=== PATIENT | female | born 1990 | race Caucasian/White ===

== ENCOUNTER → 2017-01-06 | Outpatient (CLI) | payer BC, OTHER ==
--- NOTE | 2017-01-06 21:53 | MR ---
EXAMINATION TYPE: MR brain wo con DATE OF EXAM: 01/06/2017 COMPARISON: NONE HISTORY: Seizures, migraines T1-weighted sagittal, T2, FLAIR, and diffusion axial, and T2 coronal coronal views of the brain are s ubmitted. There is no evidence of acute ischemia. The ventricles, basal cisterns, and sulci overlying the conv exities are consistent with the patient's age. There is no mass effect. Craniocervical junction maintained. Sella turcica has a normal appearance. No cerebellopontine angle mass. Changes of chronic sinusitis noted. Extensive changes involving the s phenoid sinus and ethmoid air cells. 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 White matter: Single 2 mm focus in the left frontal white matter. IMPRESSION: 1. No acute intracranial process. 2. Significant changes of sinusitis. 3. Nonspecific single 2 mm left frontal white matter lesion. Findings stable.
== END | disposition home or self-care (01) ==
LOC: RADMRIMAIN 20:41
PROVIDERS: ATTEND Psychiatry & Neurology Neurology
DX: R90.82 White matter disease, unspecified (principal); G40.909 Epilepsy, unspecified, not intractable, without status epilepticus; Z88.5 Allergy status to narcotic agent
CPT/HCPCS: 70551

== ENCOUNTER 2017-02-16 20:00 | Emergency (ER) | payer OTHER ==
[2017-02-16 20:30] VITALS: BP 104/56; PULSE 74; RESP 18; TEMP 97.8
--- NOTE | 2017-02-16 20:32 | ED ---
General Adult HPI - General Stated complaint: Back Pain Time Seen by Provider: 02/16/17 20:18 Source: patient, RN notes reviewed Mode of arrival: ambulatory Limitations: no limitations - History of Present Illness Initial comments: 26 yo female presents to the ER with cc of of low back pain. She states that she has noticed the past 3 days. She tries hot showers she took Tylenol. She has a history of degenerative disc disease. She states she just woke up with the pain. No burning or stinging with urination. No abdominal pain nausea vomiting. She states that she is breast-feeding so she cannot take any other medications that she was concerned due to the continued pain she thought that maybe we could find something to fix. She states that she was concerned that she thought that she should be seen. Patient denies any recent fever, chills, shortness of breath, chest pain, abdominal pain, nausea vomiting, numbness or tingling, dysuria or hematuria, constipation or diarrhea, headaches or visual changes, or any other current symptoms. - Related Data Home Medications Medication Instructions Recorded Confirmed Acyclovir 400 mg PO DAILY 05/07/14 05/04/16 Aspirin [Adult Low Dose Aspirin EC] 81 mg PO DAILY 05/04/16 05/04/16 Pnv,Calcium 72/Iron/Folic Acid 1 each PO DAILY 05/04/16 05/04/16 [ Plus Tablet] busPIRone HCl [Buspar] 5 mg PO BID 05/04/16 05/04/16 Previous Rx's Medication Instructions Recorded Orphenadrine [Norflex] 100 mg PO Q12H #10 tablet.er 02/16/17 Allergies Allergy/AdvReac Type Severity Reaction Status Date / Time codeine phosphate AdvReac Nausea & Verified 05/04/16 23:16 [From Tylenol-Codeine] Vomiting sulfamethoxazole AdvReac Anaphylaxis Verified 05/04/16 23:16 [From Bactrim] trimethoprim [From Bactrim] AdvReac Anaphylaxis Verified 05/04/16 23:16 Review of Systems ROS Statement: Those systems with pertinent positive or pertinent negative responses have been documented in the HPI. ROS Other: All systems not noted in ROS Statement are negative. Past Medical History Past Medical History: Seizure Disorder Additional Past Medical History / Comment(s): chronic back pain, migraines, NARCOLEPSY, genital herpes History of Any Multi-Drug Resistant Organisms: None Reported Past Surgical History: Appendectomy, Cholecystectomy Additional Past Surgical History / Comment(s): "nerves burned in my back" Past Psychological History: Anxiety, Depression Smoking Status: Current every day smoker General Exam Limitations: no limitations General appearance: alert, in no apparent distress Eye exam: Present: normal appearance, PERRL, EOMI. Absent: scleral icterus, conjunctival injection, periorbital swelling ENT exam: Present: normal exam, mucous membranes moist Neck exam: Present: normal inspection. Absent: tenderness, meningismus, lymphadenopathy Respiratory exam: Present: normal lung sounds bilaterally. Absent: respiratory distress, wheezes, rales, rhonchi, stridor Cardiovascular Exam: Present: regular rate, normal rhythm, normal heart sounds. Absent: systolic murmur, diastolic murmur, rubs, gallop, clicks Back exam: Present: normal inspection, full ROM, tenderness (Minimal to the left paraspinal region). Absent: vertebral tenderness Neurological exam: Present: alert, oriented X3 Psychiatric exam: Present: normal affect, normal mood Skin exam: Present: warm, dry, intact, normal color. Absent: rash Course Vital Signs 02/16/17 20:23 Temperature 97.8 F Pulse Rate 74 Respiratory 18 Rate Blood Pressure 104/56 O2 Sat by Pulse 97 Oximetry Medical Decision Making - Medical Decision Making 26 yo female presents with what appears to be left sided lumbar strain. This time we discussed her left pain control. We discussed fdc. We discussed return parameters all questions. We discussed safety medications and breast- feeding. Patient stated that she understood she is agreement this plan. She' ll be discharged. - Radiology Data Radiology results: report reviewed, image reviewed Disposition Clinical Impression: Lumbar strain Disposition: HOME SELF-CARE Condition: Stable Instructions: Low Back Strain (ED), Lower Back Exercises (ED) Additional Instructions: Please use medication as discussed. Please follow up with family doctor if symptoms have not improved over the next two days. Please return to the emergency room if your symptoms increase or worsen or for any other concerns. Prescriptions: Orphenadrine [Norflex] 100 mg PO Q12H #10 tablet.er Referrals: Nubia Molina MD [Primary Care Provider] - 1-2 days Time of Disposition: 20:56
--- NOTE | 2017-02-16 20:51 | XR ---
EXAMINATION TYPE: XR lumbar spine 2 or 3V DATE OF EXAM: 02/16/2017 CLINICAL HISTORY: Generalized low back pain today TECHNIQUE: Frontal and lateral images of the lumbar spine are obtained. COMPARISON: MRI lumbar spine October 18, 2014 FINDINGS: There are 5 lumbar type vertebral bodies identified. The lumbar spine shows satisfactory alignment without evidence of acute fracture or dislocation. Vertebral body heights and disk space he ights are within normal limits. Cholecystectomy clips are noted. IMPRESSION: Unremarkable study. No significant change from prior MRI.
== END 2017-02-16 21:05 | disposition home or self-care (01) ==
LOC: EC 20:00
DX: S39.012A Strain of muscle, fascia and tendon of lower back, initial encounter (principal); F17.200 Nicotine dependence, unspecified, uncomplicated; Z88.5 Allergy status to narcotic agent; Z88.6 Allergy status to analgesic agent; Z88.2 Allergy status to sulfonamides; Z79.82 Long term (current) use of aspirin; Z79.899 Other long term (current) drug therapy; X58.XXXA Exposure to other specified factors, initial encounter
CPT/HCPCS: 72100; 99283

== ENCOUNTER 2017-10-08 17:35 | Emergency (ER) | payer BC, OTHER ==
[2017-10-08] MEDS ORDERED: METOCLOPRAMIDE 5 MG/ML 2 ML VIAL IVP STA (18:36)
[2017-10-08] MEDS ORDERED: diphenhydrAMINE 50 MG/ML 1 ML VIAL IVP STA (18:36)
[2017-10-08] MEDS: SODIUM CHLORIDE 0.9% 1,000 ML IV STA ×2 (18:50→19:29)
[2017-10-08 19:03] LABS: Basophils % (A) 0 %; Eosinophils # (A) 0.2 k/uL (0-0.7); Eosinophils % (A) 2 %; HGB 12.3 gm/dL (11.4-16.0); Lymphocytes # (A) 1.9 k/uL (1.0-4.8); Lymphocytes % (A) 20 %; MCH 31.2 pg (25.0-35.0); MCHC 32.5 g/dL (31.0-37.0); MCV 96.1 fL (80.0-100.0); Mean Platelet Volume 6.3; Monocytes # (A) 0.5 k/uL (0-1.0); Monocytes % (A) 5 %; Neutrophils # (A) 7.1 k/uL (1.3-7.7); Neutrophils % (A) 72 %; Platelet Count 317 k/uL (150-450); RBC 3.95 m/uL (3.80-5.40); RDW 12.4 % (11.5-15.5); WBC 9.8 k/uL (3.8-10.6)
[2017-10-08 19:04] LABS: Appearance,Urine Clear (Clear); Bilirubin,Urine Negative (Negative); Blood,Urine Negative (Negative); Color,Urine Yellow; Glucose,Urine (UA) Negative (Negative); Ketones,Urine 2+ (Negative); Leukocyte Esterase,Urine Negative (Negative); Nitrite,Urine Negative (Negative); PH, Urine 5.5 (5.0-8.0); Protein,Urine Negative (Negative); Specific Gravity,Urine 1.013 (1.001-1.035); Urobilinogen,Urine <2.0 mg/dL (<2.0)
[2017-10-08 19:13] LABS: ALT 21 U/L (9-52); AST 12 U/L (14-36); Albumin 3.7 g/dL (3.5-5.0); Alkaline Phosphatase 50 U/L (38-126); Anion Gap 11 mmol/L; Blood Urea Nitrogen 5 mg/dL (7-17); Calcium 9.4 mg/dL (8.4-10.2); Carbon Dioxide 21 mmol/L (22-30); Chloride 104 mmol/L (98-107); Glucose 90 mg/dL (74-99); Lipase 77 U/L (23-300); Potassium 4.1 mmol/L (3.5-5.1); Sodium 136 mmol/L (137-145); Total Bilirubin 0.3 mg/dL (0.2-1.3); Total Protein 6.7 g/dL (6.3-8.2)
[2017-10-08] MEDS ORDERED: SODIUM CHLORIDE 0.9% 1,000 ML IV STA (19:16)
--- NOTE | 2017-10-08 19:41 | ED ---
General Adult HPI - General Chief complaint: Nausea/Vomiting/Diarrhea Stated complaint: poss dehydration, 14 weeks preg Time Seen by Provider: 10/08/17 18:24 Source: patient, RN notes reviewed Mode of arrival: ambulatory Limitations: no limitations - History of Present Illness Initial comments: Patient 27-year-old female who is G4, P2, approximately 14 weeks by ultrasound, presenting for nausea vomiting. Patient states that she's had nausea vomiting throughout the but increased last night. Does admit to a migraine headache. States similar to migraines that she's had in the past. Patient denies any signs of blood in the emesis. Denies any vaginal bleeding or discharge. Admits to some mild abdominal cramping. She states she has had ultrasound of this approximately one week ago. Patient denies any other complaints or symptoms. Patient denies any recent fever, chills , shortness of breath, chest pain, back pain, numbness or tingling, dysuria or hematuria, constipation or diarrhea, headaches or visual changes, or any other complaints. - Related Data Home Medications Medication Instructions Recorded Confirmed Acyclovir 400 mg PO DAILY 05/07/14 05/04/16 Aspirin [Adult Low Dose Aspirin EC] 81 mg PO DAILY 05/04/16 05/04/16 Pnv,Calcium 72/Iron/Folic Acid 1 each PO DAILY 05/04/16 05/04/16 [ Plus Tablet] busPIRone HCl [Buspar] 5 mg PO BID 05/04/16 05/04/16 Previous Rx's Medication Instructions Recorded Orphenadrine [Norflex] 100 mg PO Q12H #10 tablet.er 02/16/17 Allergies Allergy/AdvReac Type Severity Reaction Status Date / Time codeine phosphate AdvReac Nausea & Verified 10/08/17 17:49 [From Tylenol-Codeine] Vomiting sulfamethoxazole AdvReac Anaphylaxis Verified 10/08/17 17:49 [From Bactrim] trimethoprim [From Bactrim] AdvReac Anaphylaxis Verified 10/08/17 17:49 Review of Systems ROS Statement: Those systems with pertinent positive or pertinent negative responses have been documented in the HPI. ROS Other: All systems not noted in ROS Statement are negative. Past Medical History Past Medical History: Seizure Disorder Additional Past Medical History / Comment(s): NARCOLEPSY, genital herpes History of Any Multi-Drug Resistant Organisms: None Reported Past Surgical History: Appendectomy, Cholecystectomy Additional Past Surgical History / Comment(s): "nerves burned in my back" Past Psychological History: Anxiety, Depression Smoking Status: Current every day smoker Past Alcohol Use History: None Reported Past Drug Use History: None Reported General Exam - General Exam Comments Initial Comments: General: The patient is awake and alert, in no distress, and does not appear acutely ill. Eye: Pupils are equal, round and reactive to light, extra-ocular movements are intact. No nystagmus. There is normal conjunctiva bilaterally. No signs of icterus. Ears, nose, mouth and throat: There are moist mucous membranes and no oral lesions. Neck: The neck is supple, there is no tenderness or JVD. Cardiovascular: There is a regular rate and rhythm. No murmur, rub or gallop is appreciated. Respiratory: Lungs are clear to auscultation, respirations are non-labored, breath sounds are equal. No wheezes, stridor, rales, or rhonchi. Gastrointestinal: Soft, non-distended, non-tender abdomen without masses or organomegaly noted. There is no rebound or guarding present. No CVA tenderness. Musculoskeletal: Normal ROM, no tenderness. Strength 5/5. Sensation intact. Pulses equal bilaterally 2+. Neurological: A&O x 3. CN II-XII intact, There are no obvious motor or sensory deficits. Coordination appears grossly intact. Speech is normal. Skin: Skin is warm and dry and no rashes or lesions are noted. Psychiatric: Cooperative, appropriate mood & affect, normal judgment. Limitations: no limitations Course Vital Signs 10/08/17 17:46 Temperature 98.5 F Pulse Rate 79 Respiratory 18 Rate Blood Pressure 97/54 O2 Sat by Pulse 100 Oximetry Medical Decision Making - Medical Decision Making Patient reexamined at this time shows no signs of distress. Does admit to feeling much better. States headache is completely gone. Patient admits nausea much improved. Patient labs been reviewed. Given a total 2 L of foods. Patient will be discharged home to follow up with [facility]. Advised returning if any symptoms increase or worsen. - Lab Data Result diagrams: 10/08/17 18:19 10/08/17 18:19 Lab Results 10/08/17 10/08/17 10/08/17 Range/Units 18:19 18:19 18:19 WBC 9.8 (3.8-10.6) k/uL RBC 3.95 (3.80-5.40) m/uL Hgb 12.3 (11.4-16.0) gm/dL Hct 38.0 (34.0-46.0) % MCV 96.1 (80.0-100.0) fL MCH 31.2 (25.0-35.0) pg MCHC 32.5 (31.0-37.0) g/dL RDW 12.4 (11.5-15.5) % Plt Count 317 (150-450) k/uL Neutrophils % 72 % Lymphocytes % 20 % Monocytes % 5 % Eosinophils % 2 % Basophils % 0 % Neutrophils # 7.1 (1.3-7.7) k/uL Lymphocytes # 1.9 (1.0-4.8) k/uL Monocytes # 0.5 (0-1.0) k/uL Eosinophils # 0.2 (0-0.7) k/uL Basophils # 0.0 (0-0.2) k/uL Sodium 136 L (137-145) mmol/L Potassium 4.1 (3.5-5.1) mmol/L Chloride 104 (98-107) mmol/L Carbon Dioxide 21 L (22-30) mmol/L Anion Gap 11 mmol/L BUN 5 L (7-17) mg/dL Creatinine 0.45 L (0.52-1.04) mg/dL Est GFR (CKD-EPI)AfAm >90 (>60 ml/min/1.73 sqM) Est GFR (CKD-EPI)NonAf >90 (>60 ml/min/1.73 sqM) Glucose 90 (74-99) mg/dL Calcium 9.4 (8.4-10.2) mg/dL Total Bilirubin 0.3 (0.2-1.3) mg/dL AST 12 L (14-36) U/L ALT 21 (9-52) U/L Alkaline Phosphatase 50 (38-126) U/L Total Protein 6.7 (6.3-8.2) g/dL Albumin 3.7 (3.5-5.0) g/dL Lipase 77 (23-300) U/L Urine Color Yellow Urine Appearance Clear (Clear) Urine pH 5.5 (5.0-8.0) Ur Specific [place] 1.013 (1.001-1.035) Urine Protein Negative (Negative) Urine Glucose (UA) Negative (Negative) Urine Ketones 2+ H (Negative) Urine Blood Negative (Negative) Urine Nitrite Negative (Negative) Urine Bilirubin Negative (Negative) Urine Urobilinogen <2.0 (<2.0) mg/dL Ur Leukocyte Esterase Negative (Negative) Disposition Clinical Impression: Hyperemesis gravidarum Disposition: HOME SELF-CARE Condition: Good Instructions: Acute Nausea and Vomiting (ED) Additional Instructions: Please follow-up with [facility] next 1-2 days. Please return to emergency room if the symptoms increase or worsen or for any other concerns. Is patient prescribed a controlled substance at d/c from ED?: No Referrals: Antonina Chou MD [Primary Care Provider] - 1-2 days Time of Disposition: 19:30
[2017-10-08 19:55] LABS: HCG,Quantitative Serum 19308.1 mIU/mL
[2017-10-08 20:43] VITALS: BP 102/89; PULSE 64; RESP 17; TEMP 98.8
== END 2017-10-08 20:43 | disposition home or self-care (01) ==
LOC: EC 17:35
DX: O21.0 Mild hyperemesis gravidarum (principal); O99.89 Other specified diseases and conditions complicating pregnancy, childbirth and the puerperium; R51 Headache; R10.9 Unspecified abdominal pain; O99.342 Other mental disorders complicating pregnancy, second trimester; F32.9 Major depressive disorder, single episode, unspecified; F41.9 Anxiety disorder, unspecified; O99.332 Smoking (tobacco) complicating pregnancy, second trimester; F17.200 Nicotine dependence, unspecified, uncomplicated; Z79.82 Long term (current) use of aspirin; Z79.899 Other long term (current) drug therapy; Z88.2 Allergy status to sulfonamides; Z88.5 Allergy status to narcotic agent; Z87.42 Personal history of other diseases of the female genital tract; Z90.49 Acquired absence of other specified parts of digestive tract; Z3A.14 14 weeks gestation of pregnancy
CPT/HCPCS: 36415; 80053; 83690; 85025; 81003; 84702; 87086; 99284; 96374; 96375; 96361 ×2; J1200; J2765

== ENCOUNTER 2017-12-08 11:33 | Outpatient (CLI) | payer BC, OTHER ==
[2017-12-08 12:05] LABS: Appearance,Urine Clear (Clear); Bilirubin,Urine Negative (Negative); Blood,Urine Negative (Negative); Color,Urine Yellow; Glucose,Urine (UA) Negative (Negative); Ketones,Urine Trace (Negative); Leukocyte Esterase,Urine Negative (Negative); Nitrite,Urine Negative (Negative); PH, Urine 5.5 (5.0-8.0); Protein,Urine Trace (Negative); Specific Gravity,Urine 1.022 (1.001-1.035); Urobilinogen,Urine <2.0 mg/dL (<2.0)
[2017-12-08 12:34] VITALS: BP 120/59; PULSE 102; RESP 18; TEMP 98
--- NOTE | 2017-12-15 08:58 | P.MSEPDOC ---
Presenting Problems - Arrival Data Date of Arrival on Unit: 12/08/17 Time of Arrival on Unit: 11:40 Mode of Transport: Ambulatory - Complaint OB-Reason for Admission/Chief Complaint: Pain Comment: back pain, abdominal pain, hip pain Medical History - Information : 3 Para: 2 Term: 2 : 0 Abortions: Spontaneous or Elective: 0 Number of Living Children: 2 - Gestational Age Gestational Age by ROBYN (wks/days): 23 Weeks and 1 Days - History Comment: history of contractions with previous pregnany, hx gastroskesis with previous delivery. being follow by high risk Review of Systems - Review of Systems Constitutional: No problems Breast: No problems ENT: No problems Cardiovascular: No problems Respiratory: No problems Gastrointestinal: No problems Genitourinary: No problems Musculoskeletal: No problems Neurological: No problems Skin: No problems Vital Signs - Temperature Temperature: 98.0 F Temperature Source: Oral - Pulse Right Sitting Brachial Pulse Rate: 102 Pulse Assessment Method: Automatic Cuff - Respirations Respiratory Rate: 18 Oxygen Delivery Method: Room Air O2 Sat by Pulse Oximetry: 98 - Blood Pressure Right Arm Sitting Blood Pressure: 120/59 Blood Pressure Mean: 79 Blood Pressure Source: Automatic Cuff Medical Screen Scoring (Pre) - Cervical Exam Dilation: 0 cm = 0 - Uterine Contractions Frequency: N/A Duration: N/A Intensity: N/A - Maternal Vital Signs Maternal Temperature: N/A Maternal Blood Pressure: N/A Signs of Preeclampsia: N/A Maternal Respirations: N/A - Pain Assessment Pain Location and Character: Back, Abdomen, Hip Pain Scale Used: Numeric (1 - 10) Pain Intensity: 2 Pain Management Goal: 0 Pain Description: Aching Pain Radiation Location: none Pain Frequency: Occasional Pain Duration: 2 Pain Duration Units: Days Pain Behavior: None Exhibited Pain Aggravating Factors: Activity Pharmacological Interventions: PRN Medication - Maternal Trauma Maternal Trauma: N/A - Assessment Baseline FHR: 145 - Total Score Total Score (Pre): 0 - Level of Risk Level of Risk: Low (0-5) Physician Notification (Pre) - Physician Notified Physician Notified Date: 12/08/17 Physician Notified Time: 12:25 Physician/Practitioner Notifed:: Dr John Spoke With: dr John - Notification Comment Comment: ok to dc home if cervix is closed. Only send ffn if cervix is dilated Disposition - Disposition OB Disposition: Discharge to home Discharge Date: 12/08/17 Discharge Time: 12:34 I agree with the RN Medical Screening Exam: Yes Risk & Benefit of care provided described in d/c instruction: Yes Diagnosis: FALSE LABOR BEFORE 37 COMPLETED WEEKS OF GEST, SECOND TRI
== END 2017-12-08 12:42 | disposition home or self-care (01) ==
LOC: FBPOP 11:33
PROVIDERS: ATTEND Obstetrics & Gynecology
DX: O47.02 False labor before 37 completed weeks of gestation, second trimester (principal); Z3A.23 23 weeks gestation of pregnancy
CPT/HCPCS: 81003; 84112; 99213

== ENCOUNTER 2018-01-24 21:09 | Outpatient (CLI) | payer BC, OTHER ==
[2018-01-24 22:10] VITALS: BP 119/58; PULSE 85; RESP 16; TEMP 96.4
--- NOTE | 2018-01-25 09:13 | P.MSEPDOC ---
Presenting Problems - Arrival Data Date of Arrival on Unit: 01/24/18 Time of Arrival on Unit: 21:09 Mode of Transport: Ambulatory - Complaint OB-Reason for Admission/Chief Complaint: Decreased Movement Comment: pt states she hasn't felt baby move since 1800 this evening. Medical History - Information : 4 Para: 2 Term: 2 : 0 Abortions: Spontaneous or Elective: 1 Number of Living Children: 2 - Gestational Age Gestational Age by ROBYN (wks/days): 29 Weeks and 6 Days - History Complications: GDM Sexually Transmitted Diseases: HSV Review of Systems - Review of Systems Constitutional: No problems Breast: No problems ENT: No problems Cardiovascular: No problems Respiratory: No problems Gastrointestinal: No problems Genitourinary: No problems Musculoskeletal: No problems Neurological: No problems Skin: No problems Vital Signs - Temperature Temperature: 96.4 F Temperature Source: Temporal Artery Scan - Pulse Right Sitting Brachial Pulse Rate: 85 Pulse Assessment Method: Automatic Cuff - Respirations Respiratory Rate: 16 Oxygen Delivery Method: Room Air - Blood Pressure Right Arm Sitting Blood Pressure: 119/58 Blood Pressure Mean: 78 Blood Pressure Source: Automatic Cuff Medical Screen Scoring (Pre) - Cervical Exam Dilation: Exam Deferred Effacement: Exam Deferred Membranes: Intact - Uterine Contractions Frequency: N/A Duration: N/A Intensity: N/A - Maternal Vital Signs Maternal Temperature: N/A Maternal Blood Pressure: N/A Signs of Preeclampsia: N/A Maternal Respirations: N/A - Pain Assessment Pain Scale Used: Numeric (1 - 10) Pain Intensity: 0 - Maternal Trauma Maternal Trauma: N/A - Assessment Baseline FHR: 145 Heart Rate - NICHD Category: Category I (Normal) = 0 NST: Reactive Position: N/A Station: N/A - Total Score Total Score (Pre): 0 - Level of Risk Level of Risk: Low (0-5) Physician Notification (Pre) - Physician Notified Physician Notified Date: 01/24/18 Physician Notified Time: 21:49 Physician/Practitioner Notifed:: felicia Spoke With: felicia New Order Received: Yes - Notification Comment Comment: d/c home Disposition - Disposition OB Disposition: Discharge to home Discharge Date: 01/24/18 Discharge Time: 21:59 I agree with the RN Medical Screening Exam: Yes Risk & Benefit of care provided described in d/c instruction: Yes Diagnosis: DECREASED MOVEMENTS, THIRD TRIMESTER, UNSP
== END 2018-01-24 21:59 | disposition home or self-care (01) ==
LOC: FBPOP 21:09
PROVIDERS: ATTEND Obstetrics & Gynecology
DX: O36.8130 Decreased fetal movements, third trimester, not applicable or unspecified (principal); Z3A.29 29 weeks gestation of pregnancy
CPT/HCPCS: 59025; 99213

== ENCOUNTER 2018-03-12 11:21 | Outpatient (CLI) | payer BC, OTHER ==
[2018-03-12 11:55] VITALS: BP 123/65; PULSE 100; RESP 18; TEMP 97.2
--- NOTE | 2018-03-12 13:18 | P.MSEPDOC ---
Presenting Problems - Arrival Data Date of Arrival on Unit: 03/12/18 Time of Arrival on Unit: 11:12 Mode of Transport: Ambulatory - Complaint OB-Reason for Admission/Chief Complaint: Rule Out PROM Medical History - Information : 4 Para: 2 Term: 2 : 0 Number of Living Children: 2 - Gestational Age Gestational Age by ROBYN (wks/days): 36 Weeks and 4 Days - History Complications: GDM, Smoker Review of Systems - Review of Systems Constitutional: No problems Breast: No problems ENT: No problems Cardiovascular: No problems Respiratory: No problems Gastrointestinal: No problems Genitourinary: No problems Musculoskeletal: No problems Neurological: No problems Skin: No problems Vital Signs - Temperature Temperature: 97.2 F Temperature Source: Temporal Artery Scan - Pulse Right Sitting Brachial Pulse Rate: 100 Pulse Assessment Method: Automatic Cuff - Respirations Respiratory Rate: 18 Oxygen Delivery Method: Room Air O2 Sat by Pulse Oximetry: 98 - Blood Pressure Right Arm Sitting Blood Pressure: 123/65 Blood Pressure Mean: 84 Blood Pressure Source: Automatic Cuff Medical Screen Scoring (Pre) - Cervical Exam Dilation: Exam Deferred - Uterine Contractions Frequency: N/A Duration: N/A Intensity: N/A - Maternal Vital Signs Maternal Temperature: N/A Maternal Blood Pressure: N/A Signs of Preeclampsia: N/A Maternal Respirations: N/A - Pain Assessment Pain Scale Used: Numeric (1 - 10) Pain Intensity: 0 - Maternal Trauma Maternal Trauma: N/A - Assessment Baseline FHR: 125 Heart Rate - NICHD Category: Category II (Indeterminate) = 3 NST: Reactive Position: N/A Station: N/A - Total Score Total Score (Pre): 3 - Level of Risk Level of Risk: Low (0-5) Medical Screen Scoring (Post) - Cervical Exam Dilation: 1-3 cm = 1 Membranes: Intact - Total Score Total Score (Post): 1 - Post Treatment Level of Risk Post Treatment Level of Risk: Low (0-5) Physician Notification (Post) - Physician Notified Physician Notified Date: 03/12/18 Physician Notified Time: 12:02 Physician/Practitioner Notified:: Shaniqua Spoke With: Shaniqua New Order Received: Yes (discharge to home) Disposition - Disposition OB Disposition: Discharge to home, Written follow up instructions reviewed Discharge Date: 03/12/18 Discharge Time: 12:10 I agree with the RN Medical Screening Exam: Yes Risk & Benefit of care provided described in d/c instruction: Yes Diagnosis: FALSE LABOR BEFORE 37 COMPLETED WEEKS OF GEST, THIRD TRI
== END 2018-03-12 12:10 ==
LOC: FBPOP 11:21
PROVIDERS: ATTEND Obstetrics & Gynecology
DX: O47.03 False labor before 37 completed weeks of gestation, third trimester (principal); O99.333 Smoking (tobacco) complicating pregnancy, third trimester; Z3A.36 36 weeks gestation of pregnancy
CPT/HCPCS: 59025; 84112; 99213

== ENCOUNTER 2018-03-30 06:00 | Inpatient (IN) | payer BC, OTHER ==
[2018-03-30] MEDS ORDERED: OXYTOCIN 10 UNIT/ML 1 ML VIAL IM PRN (06:35)
[2018-03-30] MEDS ORDERED: CARBOPROST TROMETHAMINE 250 MCG/ML 1 ML AMP IM PRN (06:35)
[2018-03-30] MEDS ORDERED: METHYLERGONOVINE 0.2 MG/ML 1 ML AMP IM PRN (06:35)
[2018-03-30] MEDS ORDERED: LIDOCAINE 0.5% (PF) 5 MG/ML (50 ML SDV) SQ PRN (06:35)
[2018-03-30] MEDS ORDERED: TERBUTALINE 1 MG/ML VIAL SQ PRN (06:35)
[2018-03-30 06:45] VITALS: BMI 36.2
[2018-03-30] MEDS ORDERED: OXYTOCIN 30 UNITS/500 ML NS 30 UNIT in SALINE 1 500ML.BAG IV SCH (06:45)
[2018-03-30 06:54] LABS: Basophils % (A) 0 %; Eosinophils # (A) 0.2 k/uL (0-0.7); Eosinophils % (A) 2 %; HCT 38.1 % (34.0-46.0); Lymphocytes # (A) 1.8 k/uL (1.0-4.8); Lymphocytes % (A) 18 %; MCH 32.8 pg (25.0-35.0); MCHC 34.1 g/dL (31.0-37.0); MCV 96.4 fL (80.0-100.0); Mean Platelet Volume 6.3; Monocytes # (A) 0.5 k/uL (0-1.0); Monocytes % (A) 5 %; Neutrophils # (A) 7.3 k/uL (1.3-7.7); Neutrophils % (A) 72 %; Platelet Count 279 k/uL (150-450); RBC 3.95 m/uL (3.80-5.40); RDW 13.1 % (11.5-15.5); WBC 10.1 k/uL (3.8-10.6)
[2018-03-30] MEDS: LACTATED RINGERS 1,000 ML IV SCH ×2 (06:56→11:07)
[2018-03-30] MEDS ORDERED: BUTORPHANOL 1 MG/ML 1 ML VIAL IV PRN (09:01)
[2018-03-30] MEDS ORDERED: ZOLPIDEM 5 MG TAB PO PRN (11:49)
[2018-03-30] MEDS ORDERED: LANOLIN CREAM 5 GM TUBE TOPICAL PRN (11:49)
[2018-03-30] MEDS ORDERED: BENZOCAINE/MENTHOL SPRAY 1 GM/SPRAY AEROSOL TOPICAL PRN (11:49)
[2018-03-30] MEDS ORDERED: WITCH HAZEL 1 EACH MED..PAD TOPICAL PRN (11:49)
[2018-03-30] MEDS ORDERED: ACETAMINOPHEN TAB 325 MG TAB PO PRN (11:49)
[2018-03-30] MEDS ORDERED: diphenhydrAMINE 50 MG CAP PO PRN (11:49)
[2018-03-30] MEDS ORDERED: SIMETHICONE 80 MG CHEWABLE PO PRN (11:49)
[2018-03-30] MEDS ORDERED: HYDROCORTISONE 2.5% RECTAL CREAM 30 GM TUBE RECTAL PRN (11:49)
[2018-03-30] MEDS ORDERED: diphenhydrAMINE 25 MG CAP PO PRN (11:49)
[2018-03-30] MEDS: IBUPROFEN 600 MG TAB PO PRN ×2 (11:59→23:07)
[2018-03-30] MEDS ORDERED: OXYTOCIN 20 UNITS/1000 ML NS 1,000 ML IV SCH (12:00)
--- NOTE | 2018-03-30 12:00 | P.HPOB ---
History of Present Illness H&P Date: 03/30/18 Chief Complaint: Intrauterine at term: Induction of labor Patient is a 27-year-old at 39 weeks gestation arise for induction of labor. Her Precis course has been compensated by gestational diabetes for which she was diet controlled. Her sugars improved rapidly with diet control and she has done very well. Hemoglobin A1c last check was 4.8. She did have nonstress test and monitoring through the latter part of the as well. Pertinent labs O+ blood type, Rh antibody was negative. Rubella immune, hepatitis B surface antigen as well as RPR and GBS were all negative. All questions are answered for her prior to proceeding with induction. On physical exam vital signs are stable and afebrile. Heart regular, lungs clear, extremities are without pain. Pelvic exam reveals review to [facility] dilated artificial rupture membranes was performed and clear fluid is noted. Cautery when tracing is noted. Past Medical History Past Medical History: Asthma, Seizure Disorder Additional Past Medical History / Comment(s): NARCOLEPSY, genital herpes History of Any Multi-Drug Resistant Organisms: None Reported Past Surgical History: Appendectomy, Cholecystectomy Additional Past Surgical History / Comment(s): "nerves burned in my back" Past Anesthesia/Blood Transfusion Reactions: No Reported Reaction Past Psychological History: Anxiety, Depression Smoking Status: Current every day smoker Past Alcohol Use History: None Reported Past Drug Use History: None Reported - Past Family History Mother Family Medical History: No Reported History Medications and Allergies Home Medications Medication Instructions Recorded Confirmed Type Acyclovir 400 mg PO BID 05/07/14 03/30/18 History Pnv,Calcium 72/Iron/Folic Acid 1 each PO DAILY 05/04/16 03/30/18 History [ Plus Tablet] Allergies Allergy/AdvReac Type Severity Reaction Status Date / Time codeine phosphate AdvReac Nausea & Verified 03/30/18 06:33 [From Tylenol-Codeine] Vomiting sulfamethoxazole AdvReac Rash/Hives Verified 03/30/18 06:33 [From Bactrim] trimethoprim [From Bactrim] AdvReac Rash/Hives Verified 03/30/18 06:33 Exam Osteopathic Statement: *. No significant issues noted on an osteopathic structural exam other than those noted in the History and Physical/Consult. Vital Signs Temp Pulse Resp BP 03/30/18 06:40 97.4 F L 96 15 112/58 Intake and Output 03/29/18 03/30/18 03/30/18 22:59 06:59 14:59 Other: Weight 98.883 kg - OBG Physical Exam Breast: both: normal (no masses) Abdomen: bowel sounds normal, no diffuse tenderness, no bruit present, no guarding noted, no hepatomegaly, no splenomegaly, no mass Vulva: both: normal Vagina: normal moisture, no discharge Cervix: no lesion, no discharge Uterus: normal size, normal contour Adnexa: both: normal Anus/Rectum: normal perianal skin, no rectal mass, no hemorrhoids, heme negative Results Result Diagrams: 03/30/18 06:37
--- NOTE | 2018-03-30 12:02 | P.PROBDLV ---
Vaginal Delivery Note - . Vaginal Delivery Note: Patient progressed complete and pushing with spontaneous vaginal delivery of a viable male over an intact perineum. Falling deliver the head anterior posterior shoulders were easily delivered with gentle downward upper traction followed by the remainder the baby. Baby was delivered from left occiput anterior position. Once baby was fully delivered mouth nares were bulb suctioned and was placed on mother's abdomen where the umbilical cord was allowed to pulsate for 30 seconds prior to clamping and cutting. Nursery personnel was present and assumed care. Placenta was then delivered intact and Pitocin was added to the IV. scores and weight are both pending, but both mother and baby appear stable.
[2018-03-30] MEDS: SENNOSIDES-DOCUSATE SODIUM 1 EACH TAB PO SCH (20:30)
[2018-03-30 21:32] LABS: Hemoglobin A1C 4.8 % (4.0-6.0)
[2018-03-31 07:03] LABS: Basophils % (A) 0 %; Eosinophils # (A) 0.2 k/uL (0-0.7); Eosinophils % (A) 2 %; HCT 34.9 % (34.0-46.0); HGB 11.5 gm/dL (11.4-16.0); Lymphocytes # (A) 1.7 k/uL (1.0-4.8); Lymphocytes % (A) 18 %; MCH 32.3 pg (25.0-35.0); MCV 98.1 fL (80.0-100.0); Monocytes # (A) 0.7 k/uL (0-1.0); Monocytes % (A) 7 %; Neutrophils # (A) 6.9 k/uL (1.3-7.7); Neutrophils % (A) 70 %; Platelet Count 272 k/uL (150-450); RBC 3.55 m/uL (3.80-5.40); WBC 9.8 k/uL (3.8-10.6)
--- NOTE | 2018-03-31 07:43 | P.DS ---
Providers Date of admission: 03/30/18 06:22 Expected date of discharge: 03/31/18 Attending physician: Jeremias John Primary care physician: Stated None Hospital Course: Araceli is doing very well day 1. She is involuting, voiding, and she is tolerating her diet. She voices no complaints. Vital signs are stable and afebrile. Heart regular, lungs clear, extremities without pain. Abdomen soft nontender. Uterus is firm and lochia is reported be light. Assessment day 1. Plan discharged home follow up with me in 6 weeks. Discharge instructions were thoroughly reviewed all questions were answered and a prescription for Motrin was reported to her pharmacy. Patient Condition at Discharge: Good Plan - Discharge Summary New Discharge Prescriptions: New Ibuprofen [Motrin] 600 mg PO Q6HR PRN #30 tab PRN Reason: Pain No Action Acyclovir 400 mg PO BID Pnv,Calcium 72/Iron/Folic Acid [ Plus Tablet] 1 each PO DAILY Discharge Medication List Acyclovir 400 mg PO BID 05/07/14 [History] Pnv,Calcium 72/Iron/Folic Acid [ Plus Tablet] 1 each PO DAILY 05/04/16 [ History] Ibuprofen [Motrin] 600 mg PO Q6HR PRN #30 tab 03/31/18 [Rx] Follow up Appointment(s)/Referral(s): Jeremias John DO [Doctor of Osteopathic Medicine] - 1 Week Activity/Diet/Wound Care/Special Instructions: No heavy lifting, limit stairs and driving, and pelvic rest. If any high temperatures, heavy bleeding, or severe pain call my office Discharge Disposition: HOME SELF-CARE
[2018-03-31] MEDS: SENNOSIDES-DOCUSATE SODIUM 1 EACH TAB PO SCH (08:46)
[2018-03-31] MEDS: IBUPROFEN 600 MG TAB PO PRN (09:36)
[2018-03-31 12:33] VITALS: BP 124/67; PULSE 60; RESP 17; TEMP 97.7
== END 2018-03-31 12:30 | disposition home or self-care (01) | DRG 806 ==
LOC: 4FBP 06:22
PROVIDERS: ADMIT Obstetrics & Gynecology; ATTEND Obstetrics & Gynecology
PROC: 10907ZC Drainage of Amniotic Fluid, Therapeutic from Products of Conception, Via Natural or Artificial Opening (ICD-10-PCS; principal; 2018-03-30)
PROC: 3E033VJ Introduction of Other Hormone into Peripheral Vein, Percutaneous Approach (ICD-10-PCS; principal; 2018-03-30)
PROC: 10E0XZZ Delivery of Products of Conception, External Approach (ICD-10-PCS; principal; 2018-03-30)
DX: O24.420 Gestational diabetes mellitus in childbirth, diet controlled (principal); O98.32 Other infections with a predominantly sexual mode of transmission complicating childbirth; Z37.0 Single live birth; O99.334 Smoking (tobacco) complicating childbirth; F17.200 Nicotine dependence, unspecified, uncomplicated; A60.09 Herpesviral infection of other urogenital tract; Z3A.39 39 weeks gestation of pregnancy; Z79.899 Other long term (current) drug therapy; Z88.5 Allergy status to narcotic agent; Z88.2 Allergy status to sulfonamides
CPT/HCPCS: 83036; 85025; 86850; 86900; 86901

== ENCOUNTER → 2018-05-29 | Outpatient (CLI) | payer BC, OTHER ==
[2018-05-29 11:30] LABS: Glucose 2 Hour 81 mg/dL
== END ==
LOC: LABWHC1 08:25
PROVIDERS: ATTEND Obstetrics & Gynecology
DX: O24.439 Gestational diabetes mellitus in the puerperium, unspecified control (principal); Z3A.00 Weeks of gestation of pregnancy not specified
CPT/HCPCS: 36415; 82947; 82950

== ENCOUNTER → 2018-06-04 | Outpatient (CLI) | payer BC, OTHER | END | disposition home or self-care (01) | LOC: LABWHC1 11:30 | PROVIDERS: ATTEND Obstetrics & Gynecology | DX: N91.2 Amenorrhea, unspecified (principal) | CPT/HCPCS: 36415; 84702 ==

== ENCOUNTER 2018-10-20 17:52 | Emergency (ER) | payer BC, OTHER ==
[2018-10-20 18:00] VITALS: BP 115/66; PULSE 70; RESP 18; TEMP 98.5
[2018-10-20] MEDS ORDERED: SODIUM CHLORIDE 0.9% 1,000 ML IV STA (18:26)
--- NOTE | 2018-10-20 18:35 | ED ---
Abdominal Pain HPI - General Chief Complaint: Abdominal Pain Stated Complaint: Cramps, vomiting, fatigue Time Seen by Provider: 10/20/18 18:02 Source: patient Mode of arrival: ambulatory Limitations: no limitations - History of Present Illness Initial Comments: Patient is a 28-year-old female presenting to the emergency Department with complaints of abdominal cramping has been going on for the past 2-3 weeks. Patient is currently 8 weeks . Patient is . Patient states she is currently switching OB GYNs to Marjorie Camp, but has yet to see her. Patient states she has been having an increase in nausea and fatigue. Patient denies any vaginal bleeding at this time. Patient states she feels like the abdominal pain has been increasing. Patient stopped breast-feeding her 6-month-old approximately one month ago. Patient is still taking a vitamin. Patient denies fever, chills, vomiting, diarrhea. Patient has no other com plaints at this time. Upon arrival to ER, vital signs stable. - Related Data Home Medications Medication Instructions Recorded Confirmed Pnv,Calcium 72/Iron/Folic Acid 1 tab PO HS 05/04/16 10/20/18 [ Plus Tablet] Allergies Allergy/AdvReac Type Severity Reaction Status Date / Time sulfamethoxazole Allergy Rash/Hives Verified 10/20/18 18:08 [From Bactrim] trimethoprim [From Bactrim] Allergy Rash/Hives Verified 10/20/18 18:08 codeine phosphate AdvReac Nausea & Verified 10/20/18 18:08 [From Tylenol-Codeine] Vomiting Review of Systems ROS Statement: Those systems with pertinent positive or pertinent negative responses have been documented in the HPI. ROS Other: All systems not noted in ROS Statement are negative. Past Medical History Past Medical History: Asthma, Seizure Disorder Additional Past Medical History / Comment(s): NARCOLEPSY, genital herpes History of Any Multi-Drug Resistant Organisms: None Reported Past Surgical History: Appendectomy, Cholecystectomy Additional Past Surgical History / Comment(s): "nerves burned in my back" Past Anesthesia/Blood Transfusion Reactions: No Reported Reaction Past Psychological History: Anxiety, Depression Smoking Status: Current every day smoker Past Alcohol Use History: None Reported Past Drug Use History: None Reported - Past Family History Mother Family Medical History: No Reported History General Exam - General Exam Comments Initial Comments: GENERAL: Well-appearing, well-nourished and in no acute distress. HEAD: Atraumatic, normocephalic. EYES: Pupils equal round and reactive to light, extraocular movements intact, sclera anicteric, conjunctiva are normal. ENT: TMs normal, nares patent, oropharynx clear without exudates. Moist mucous membranes. NECK: Normal range of motion, supple without lymphadenopathy or JVD. LUNGS: Breath sounds clear to auscultation bilaterally and equal. No wheezes rales or rhonchi. HEART: Regular rate and rhythm without murmurs, rubs or gallops. ABDOMEN: Lower abdominal/suprapubic tenderness to palpation. Soft, normoactive bowel sounds. No guarding, no rebound. No masses appreciated. : Deferred EXTREMITIES: Normal range of motion, no pitting or edema. No clubbing or cyanosis. NEUROLOGICAL: Cranial nerves II through XII grossly intact. Normal speech, normal gait. PSYCH: Normal mood, normal affect. SKIN: Warm, Dry, normal turgor, no rashes or lesions noted. Limitations: no limitations Course Vital Signs 10/20/18 17:58 Temperature 98.5 F Pulse Rate 70 Respiratory 18 Rate Blood Pressure 115/66 O2 Sat by Pulse 99 Oximetry Medical Decision Making - Medical Decision Making Patient is a 28-year-old female presenting with lower abdominal pain for a few weeks. Patient is currently 8 weeks . Patient is . Her last child is 6 months of age. On exam patient has suprapubic tenderness. Rest of exam is within normal limits. Vital signs are stable. CBC, CMP are within normal limits. HCG Rom is 211,000. UA shows no signs of infection. Patient's blood type is O+. Ultrasound reveals a single viable IUP corresponding with 8 weeks and 2 days. Heart rate is 159. There was a tiny subchorionic hemorrhage measuring approximately 3.1mL. findings were discussed with the patient. Jayant king is stable for discharge at this time and she is in agreement with this plan of care. Patient will continue with vitamins. Patient will see [employer] next week as discussed. Return parameters were discussed with the patient she verbalized understanding. Case discussed with Dr. Damian. - Lab Data Result diagrams: 10/20/18 18:37 10/20/18 18:37 Lab Results 10/20/18 10/20/18 10/20/18 Range/Units 18:37 18:37 18:37 WBC 9.9 (3.8-10.6) k/uL RBC 4.06 (3.80-5.40) m/uL Hgb 12.9 (11.4-16.0) gm/dL Hct 37.7 (34.0-46.0) % MCV 92.6 (80.0-100.0) fL MCH 31.8 (25.0-35.0) pg MCHC 34.3 (31.0-37.0) g/dL RDW 14.1 (11.5-15.5) % Plt Count 328 (150-450) k/uL Neutrophils % 69 % Lymphocytes % 21 % Monocytes % 5 % Eosinophils % 2 % Basophils % 1 % Neutrophils # 6.8 (1.3-7.7) k/uL Lymphocytes # 2.1 (1.0-4.8) k/uL Monocytes # 0.5 (0-1.0) k/uL Eosinophils # 0.2 (0-0.7) k/uL Basophils # 0.1 (0-0.2) k/uL Sodium 138 (137-145) mmol/L Potassium 4.0 (3.5-5.1) mmol/L Chloride 106 (98-107) mmol/L Carbon Dioxide 24 (22-30) mmol/L Anion Gap 8 mmol/L BUN 10 (7-17) mg/dL Creatinine 0.44 L (0.52-1.04) mg/dL Est GFR (CKD-EPI)AfAm >90 (>60 ml/min/1.73 sqM) Est GFR (CKD-EPI)NonAf >90 (>60 ml/min/1.73 sqM) Glucose 94 (74-99) mg/dL Calcium 9.3 (8.4-10.2) mg/dL Total Bilirubin 0.2 (0.2-1.3) mg/dL AST 13 L (14-36) U/L ALT 11 (9-52) U/L Alkaline Phosphatase 61 (38-126) U/L Total Protein 7.0 (6.3-8.2) g/dL Albumin 4.1 (3.5-5.0) g/dL HCG, Quant 824843.0 mIU/mL Urine Color Urine Appearance (Clear) Urine pH (5.0-8.0) Ur Specific Rice (1.001-1.035) Urine Protein (Negative) Urine Glucose (UA) (Negative) Urine Ketones (Negative) Urine Blood (Negative) Urine Nitrite (Negative) Urine Bilirubin (Negative) Urine Urobilinogen (<2.0) mg/dL Ur Leukocyte Esterase (Negative) Blood Type O Positive Blood Type Recheck O Pos Bld Type Recheck Status [facility] ONLY 10/20/18 Range/Units 18:47 WBC (3.8-10.6) k/uL RBC (3.80-5.40) m/uL Hgb (11.4-16.0) gm/dL Hct (34.0-46.0) % MCV (80.0-100.0) fL MCH (25.0-35.0) pg MCHC (31.0-37.0) g/dL RDW (11.5-15.5) % Plt Count (150-450) k/uL Neutrophils % % Lymphocytes % % Monocytes % % Eosinophils % % Basophils % % Neutrophils # (1.3-7.7) k/uL Lymphocytes # (1.0-4.8) k/uL Monocytes # (0-1.0) k/uL Eosinophils # (0-0.7) k/uL Basophils # (0-0.2) k/uL Sodium (137-145) mmol/L Potassium (3.5-5.1) mmol/L Chloride (98-107) mmol/L Carbon Dioxide (22-30) mmol/L Anion Gap mmol/L BUN (7-17) mg/dL Creatinine (0.52-1.04) mg/dL Est GFR (CKD-EPI)AfAm (>60 ml/min/1.73 sqM) Est GFR (CKD-EPI)NonAf (>60 ml/min/1.73 sqM) Glucose (74-99) mg/dL Calcium (8.4-10.2) mg/dL Total Bilirubin (0.2-1.3) mg/dL AST (14-36) U/L ALT (9-52) U/L Alkaline Phosphatase (38-126) U/L Total Protein (6.3-8.2) g/dL Albumin (3.5-5.0) g/dL HCG, Quant mIU/mL Urine Color Yellow Urine Appearance Clear (Clear) Urine pH 5.5 (5.0-8.0) Ur Specific Rice 1.022 (1.001-1.035) Urine Protein Negative (Negative) Urine Glucose (UA) Negative (Negative) Urine Ketones Negative (Negative) Urine Blood Negative (Negative) Urine Nitrite Negative (Negative) Urine Bilirubin Negative (Negative) Urine Urobilinogen <2.0 (<2.0) mg/dL Ur Leukocyte Esterase Negative (Negative) Blood Type Blood Type Recheck Bld Type Recheck Status Disposition Clinical Impression: Abdominal pain, and not yet delivered in first trimester Disposition: HOME SELF-CARE Condition: Stable Instructions (If sedation given, give patient instructions): Abdominal Pain in (ED) Additional Instructions: Please return to the Emergency Department if symptoms worsen or any other concerns. Follow-up with [employer] as discussed. Is patient prescribed a controlled substance at d/c from ED?: No Referrals: Antonina Chou MD [Primary Care Provider] - 1-2 days
[2018-10-20 18:56] LABS: ALT 11 U/L (9-52); AST 13 U/L (14-36); African American GFR (CKD) >90 (>60 ml/min/1.73 sqM); Albumin 4.1 g/dL (3.5-5.0); Alkaline Phosphatase 61 U/L (38-126); Anion Gap 8 mmol/L; Blood Urea Nitrogen 10 mg/dL (7-17); Calcium 9.3 mg/dL (8.4-10.2); Carbon Dioxide 24 mmol/L (22-30); Chloride 106 mmol/L (98-107); Glucose 94 mg/dL (74-99); Sodium 138 mmol/L (137-145); Total Bilirubin 0.2 mg/dL (0.2-1.3)
[2018-10-20 18:58] LABS: Appearance,Urine Clear (Clear); Bilirubin,Urine Negative (Negative); Blood,Urine Negative (Negative); Color,Urine Yellow; Glucose,Urine (UA) Negative (Negative); Ketones,Urine Negative (Negative); Leukocyte Esterase,Urine Negative (Negative); Nitrite,Urine Negative (Negative); PH, Urine 5.5 (5.0-8.0); Protein,Urine Negative (Negative); Specific Gravity,Urine 1.022 (1.001-1.035); Urobilinogen,Urine <2.0 mg/dL (<2.0)
[2018-10-20 19:01] LABS: Basophils # (A) 0.1 k/uL (0-0.2); Basophils % (A) 1 %; Eosinophils # (A) 0.2 k/uL (0-0.7); Eosinophils % (A) 2 %; HCT 37.7 % (34.0-46.0); HGB 12.9 gm/dL (11.4-16.0); Lymphocytes # (A) 2.1 k/uL (1.0-4.8); Lymphocytes % (A) 21 %; MCH 31.8 pg (25.0-35.0); MCHC 34.3 g/dL (31.0-37.0); MCV 92.6 fL (80.0-100.0); Mean Platelet Volume 6.4; Monocytes # (A) 0.5 k/uL (0-1.0); Monocytes % (A) 5 %; Neutrophils # (A) 6.8 k/uL (1.3-7.7); Neutrophils % (A) 69 %; Platelet Count 328 k/uL (150-450); RBC 4.06 m/uL (3.80-5.40); RDW 14.1 % (11.5-15.5); WBC 9.9 k/uL (3.8-10.6)
--- NOTE | 2018-10-20 20:41 | US ---
EXAMINATION TYPE: Transabdominal DATE OF EXAM: 10/20/2018 7:46 PM COMPARISON: No previous for this . US. CLINICAL HISTORY: pain. Pelvic pain x 5 weeks. Nausea, vomiting. Hx ovarian cyst. . EXAM PERFORMED: Transabdominal (TA) EXAM MEASUREMENTS: GESTATIONAL AGE / DATING Physician Established: Not yet established Dates by LMP: (8 weeks/1 day) EDC: 05/31/2019 Dates by First Scan: This is first scan Dates by Current Scan for: (8 weeks/2 days) EDC: 05/30/2019 MATERNAL ANATOMY Uterus: 10.0 x 8.3 x 7.1 Right Ovary: 2.9 x 1.4 x 1.5 cm. Left Ovary: 2.7 x 2.0 x 1.4 cm. Post CDS / Adnexa: appears wnl Presence of free fluid: none seen Presence of corpus luteal cyst: none seen Presence of subchorionic bleed: Hypoechoic area seen inferior to gestational sac measurin.7 x 2.2 x 1.0 cm. GESTATION / SURVEY CRL: 1.76 cm. (8 weeks/2 days) Yolk Sac (normal less than 6mm): 2.8 mm. Heart Rate: 159 bpm Rhythm: Normal IUP: Viable IUP Date of LMP: 08/24/2018 IMPRESSION: SINGLE VIABLE INTRAUTERINE CORRESPONDING WITH 8 WEEKS 2 DAYS GESTATION. Evident tiny subch orionic hemorrhage measuring approximately 3.1 mL.
== END 2018-10-20 21:22 | disposition home or self-care (01) ==
LOC: EC 17:52
DX: O99.89 Other specified diseases and conditions complicating pregnancy, childbirth and the puerperium (principal); R10.30 Lower abdominal pain, unspecified; R11.0 Nausea; R53.83 Other fatigue; O20.8 Other hemorrhage in early pregnancy; O99.331 Smoking (tobacco) complicating pregnancy, first trimester; F17.200 Nicotine dependence, unspecified, uncomplicated; Z3A.08 8 weeks gestation of pregnancy; Z88.1 Allergy status to other antibiotic agents; Z88.2 Allergy status to sulfonamides; Z88.5 Allergy status to narcotic agent
CPT/HCPCS: 36415; 76801; 80053; 81003; 84702; 85025; 86900; 86901; 96360; 99284

== ENCOUNTER 2019-02-19 12:29 | Outpatient (CLI) | payer BC, OTHER ==
[2019-02-19 13:18] LABS: Appearance,Urine Clear (Clear); Bilirubin,Urine Negative (Negative); Blood,Urine Negative (Negative); Color,Urine Light Yellow; Glucose,Urine (UA) Negative (Negative); Ketones,Urine Negative (Negative); Leukocyte Esterase,Urine Negative (Negative); Nitrite,Urine Negative (Negative); Protein,Urine Negative (Negative); Specific Gravity,Urine 1.003 (1.001-1.035); Urobilinogen,Urine <2.0 mg/dL (<2.0)
[2019-02-19 13:57] VITALS: BP 126/58; PULSE 95; RESP 16; TEMP 97
--- NOTE | 2019-02-22 09:59 | P.MSEPDOC ---
Presenting Problems - Arrival Data Date of Arrival on Unit: 02/19/19 Time of Arrival on Unit: 12:29 Mode of Transport: Ambulatory - Complaint OB-Reason for Admission/Chief Complaint: Pain Medical History - Information : 4 Para: 3 Term: 3 : 0 Abortions: Spontaneous or Elective: 0 Number of Living Children: 3 - Gestational Age Gestational Age by ROBYN (wks/days): 25 Weeks and 4 Days Review of Systems - Review of Systems Constitutional: No problems Breast: No problems ENT: No problems Cardiovascular: No problems Respiratory: No problems Gastrointestinal: No problems Genitourinary: No problems Musculoskeletal: No problems Neurological: No problems Skin: No problems Vital Signs - Temperature Temperature: 97.0 F Temperature Source: Tympanic - Pulse Right Brachial Pulse Rate: 95 Pulse Assessment Method: Automatic Cuff - Respirations Respiratory Rate: 16 Oxygen Delivery Method: Room Air - Blood Pressure Right Arm Blood Pressure: 126/58 Blood Pressure Mean: 80 Blood Pressure Source: Automatic Cuff Medical Screen Scoring (Pre) - Cervical Exam Dilation: 0 cm = 0 Membranes: Intact - Uterine Contractions Frequency: N/A Duration: N/A Intensity: N/A - Maternal Vital Signs Maternal Temperature: N/A Maternal Blood Pressure: N/A Signs of Preeclampsia: N/A Maternal Respirations: N/A - Maternal Trauma Maternal Trauma: N/A - Assessment - Baby A Heart Rate - NICHD Category: Category I (Normal) = 0 Position: N/A Station: N/A - Total Score - Baby A Total Score - Baby A: 0 - Total Score - Baby B Total Score - Baby B: 0 - Total Score - Baby C Total Score - Baby C: 0 - Level of Risk - Baby A Level of Risk - Baby A: Low (0-5) - Level of Risk - Baby B Level of Risk - Baby B: Low (0-5) - Level of Risk - Baby C Level of Risk - Baby C: Low (0-5) Physician Notification (Pre) - Physician Notified Physician Notified Date: 02/19/19 Physician Notified Time: 13:00 - Notification Comment Comment: collect FFN, UA, and check cervix call back with results Medical Screen Scoring (Post) - Cervical Exam Dilation: Exam Deferred Effacement: Exam Deferred Membranes: Intact - Uterine Contractions Frequency: N/A Duration: N/A Intensity: N/A - Maternal Vital Signs Maternal Temperature: N/A Maternal Blood Pressure: N/A Signs of Preeclampsia: N/A Maternal Respirations: N/A - Maternal Trauma Maternal Trauma: N/A - Total Score Total Score - Baby A: 0 Total Score - Baby B: 0 Total Score - Baby C: 0 - Post Treatment Level of Risk Post Treatment Level of Risk - Baby A: Low (0-5) Physician Notification (Post) - Physician Notified Physician Notified Date: 02/19/19 Physician Notified Time: 14:19 Physician/Practitioner Notified:: Dr. Camp Spoke With: Dr. Camp New Order Received: Yes - Notification Comment Comment: d/c home Disposition - Disposition OB Disposition: Discharge to home Discharge Date: 02/19/19 Discharge Time: 14:20 I agree with the RN Medical Screening Exam: Yes Risk & Benefit of care provided described in d/c instruction: Yes Diagnosis: UNSPECIFIED ABDOMINAL PAIN
== END 2019-02-19 14:21 | disposition home or self-care (01) ==
LOC: FBPOP 12:29
PROVIDERS: ATTEND Obstetrics & Gynecology Obstetrics
DX: O99.89 Other specified diseases and conditions complicating pregnancy, childbirth and the puerperium (principal); R10.9 Unspecified abdominal pain; Z3A.25 25 weeks gestation of pregnancy
CPT/HCPCS: 81003; 82731; 99213

== ENCOUNTER 2019-05-24 06:00 | Inpatient (IN) | payer BC, OTHER ==
[2019-05-24] MEDS ORDERED: OXYTOCIN 10 UNIT/ML 1 ML VIAL IM PRN (06:34)
[2019-05-24] MEDS ORDERED: LIDOCAINE 0.5% (PF) 5 MG/ML (50 ML SDV) SQ PRN (06:34)
[2019-05-24] MEDS ORDERED: TERBUTALINE 1 MG/ML VIAL SQ PRN (06:34)
[2019-05-24] MEDS ORDERED: CARBOPROST TROMETHAMINE 250 MCG/ML 1 ML AMP IM PRN (06:34)
[2019-05-24] MEDS ORDERED: METHYLERGONOVINE 0.2 MG/ML 1 ML AMP IM PRN (06:34)
[2019-05-24] MEDS: LACTATED RINGERS 1,000 ML IV SCH ×2 (06:43→20:04)
[2019-05-24] MEDS ORDERED: OXYTOCIN 30 UNITS/500 ML NS 30 UNIT in SALINE 1 500ML.BAG IV SCH (06:45)
[2019-05-24 07:04] LABS: Basophils % (A) 0 %; Eosinophils # (A) 0.3 k/uL (0-0.7); Eosinophils % (A) 2 %; HCT 37.7 % (34.0-46.0); HGB 12.6 gm/dL (11.4-16.0); Lymphocytes # (A) 2.3 k/uL (1.0-4.8); Lymphocytes % (A) 18 %; MCH 31.3 pg (25.0-35.0); MCHC 33.3 g/dL (31.0-37.0); MCV 94.2 fL (80.0-100.0); Mean Platelet Volume 6.7; Monocytes # (A) 0.6 k/uL (0-1.0); Monocytes % (A) 5 %; Neutrophils % (A) 71 %; Platelet Count 309 k/uL (150-450); RBC 4.01 m/uL (3.80-5.40); WBC 12.6 k/uL (3.8-10.6)
[2019-05-24] MEDS ORDERED: HYDROcodone/APAP 5-325MG 1 EACH TAB PO PRN (13:58)
[2019-05-24] MEDS ORDERED: HYDROCORTISONE 2.5% RECTAL CREAM 30 GM TUBE RECTAL PRN (13:58)
[2019-05-24] MEDS ORDERED: ZOLPIDEM 5 MG TAB PO PRN (13:58)
[2019-05-24] MEDS ORDERED: BENZOCAINE/MENTHOL SPRAY 1 GM/SPRAY AEROSOL TOPICAL PRN (13:58)
[2019-05-24] MEDS ORDERED: diphenhydrAMINE 50 MG CAP PO PRN (13:58)
[2019-05-24] MEDS ORDERED: ACETAMINOPHEN TAB 325 MG TAB PO PRN (13:58)
[2019-05-24] MEDS ORDERED: WITCH HAZEL 1 EACH MED..PAD TOPICAL PRN (13:58)
[2019-05-24] MEDS ORDERED: diphenhydrAMINE 25 MG CAP PO PRN (13:58)
[2019-05-24] MEDS ORDERED: LANOLIN CREAM 5 GM TUBE TOPICAL PRN (13:58)
[2019-05-24] MEDS ORDERED: diphenhydrAMINE 50 MG/ML 1 ML VIAL IVP PRN ×2 (13:58)
[2019-05-24] MEDS ORDERED: SIMETHICONE 80 MG CHEWABLE PO PRN (13:58)
[2019-05-24] MEDS ORDERED: OXYTOCIN 20 UNITS/1000 ML NS 1,000 ML IV SCH (14:00)
--- NOTE | 2019-05-24 14:02 | P.HPOB ---
History of Present Illness H&P Date: 05/24/19 Chief Complaint: IUP at 39 and 1/sevenths weeks This is a 28-year-old 5 para 3013 at 39 and one sevenths weeks with an estimated due date of 05/29. Patient elects induction of labor. Patient has been receiving routine manner care with myself that has been essentially uncomplicated. Patient notes good movement she denies vaginal bleeding loss of fluid. Patient denies concerns this morning. On blood work she has a blood type of O+, rubella status immune, RPR nonreactive, B surface antigen negative, group beta strep negative. Patient does have a history of HSV and has been on Valtrex since 36 weeks. Review of Systems Constitutional: Denies chills, Denies fatigue, Denies fever Ears, nose, mouth and throat: Denies headache Cardiovascular: Reports leg edema Gastrointestinal: Denies constipation, Denies diarrhea, Denies nausea, Denies vomiting Genitourinary: Reports Past Medical History Past Medical History: Asthma, Seizure Disorder Additional Past Medical History / Comment(s): NARCOLEPSY, genital herpes History of Any Multi-Drug Resistant Organisms: None Reported Past Surgical History: Appendectomy, Cholecystectomy Additional Past Surgical History / Comment(s): "nerves burned in my back" Past Anesthesia/Blood Transfusion Reactions: No Reported Reaction Past Psychological History: Anxiety, Depression Smoking Status: Current every day smoker Past Alcohol Use History: None Reported Past Drug Use History: None Reported - Past Family History Mother Family Medical History: No Reported History Medications and Allergies Home Medications Medication Instructions Recorded Confirmed Type Pnv,Calcium 72/Iron/Folic Acid 1 tab PO HS 05/04/16 05/24/19 History [ Plus Tablet] Sertraline [Zoloft] 100 mg PO DAILY 02/19/19 05/24/19 History valACYclovir HCL [Valtrex] 500 mg PO DAILY 05/24/19 05/24/19 History Allergies Allergy/AdvReac Type Severity Reaction Status Date / Time sulfamethoxazole Allergy Rash/Hives Verified 05/24/19 06:27 [From Bactrim] trimethoprim [From Bactrim] Allergy Rash/Hives Verified 05/24/19 06:27 codeine phosphate AdvReac Nausea & Verified 05/24/19 06:27 [From Tylenol-Codeine] Vomiting Exam Osteopathic Statement: *. No significant issues noted on an osteopathic structural exam other than those noted in the History and Physical/Consult. 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 heart tones returned be category 1 and she is c ontracting irregularly. Results Result Diagrams: 05/24/19 06:35 Abnormal Lab Results - Last 24 Hours (Table) 05/24/19 Range/Units 06:35 WBC 12.6 H (3.8-10.6) k/uL Neutrophils # 9.0 H (1.3-7.7) k/uL Assessment and Plan (1) Term Current Visit: Yes Status: Acute Code(s): Z34.90 - ENCNTR FOR SUPRVSN OF NORMAL , UNSP, UNSP TRIMESTER SNOMED Code(s): 43204457 Plan: Patient is admitted to labor and delivery for Pitocin induction of labor. Pitocin is started per hospital protocol, options for analgesia are discussed and she declines. Anticipate spontaneous vaginal delivery later today.
--- NOTE | 2019-05-24 14:03 | P.PROBDLV ---
Vaginal Delivery Note - . Vaginal Delivery Note: This pleasant 28-year-old 5 para 3013 at 39 and one sevenths weeks presented to labor and delivery for elective induction of labor. Patient was admitted and Pitocin induction of labor was begun per hospital protocol. Amniotomy was performed clear fluid was obtained. Patient progressed to complete began pushing and had a normal spontaneous vaginal delivery of a viable male infant at 1343, loose nuchal cord 2 was noted and delivered through. After two-minute delayed the umbilical cord was doubly clamped and cut and the infant was handed off to the maternal abdomen. The placenta was then delivered spontaneously intact with a three-vessel cord being noted. Cord blood had been taken prior to this. Inspection the patient's vaginal vault a right labial laceration was noted to be present therefore this was repaired with a [id number] suture of 4-0 chromic. Hemostasis was appreciated afterwards. No further lacerations were noted within the vaginal vault. Uterus is noted to be firm and below the umbilicus at this time. Estimated blood loss 200 mL. All counts are correct 2 Patient and infant tolerated delivery well and are resting comfortably.
[2019-05-24] MEDS: IBUPROFEN 600 MG TAB PO PRN (16:16)
[2019-05-24] MEDS ORDERED: SENNOSIDES-DOCUSATE SODIUM 1 EACH TAB PO SCH (20:00)
[2019-05-25] MEDS: IBUPROFEN 600 MG TAB PO PRN (04:23)
[2019-05-25 08:18] VITALS: BP 110/64; PULSE 77; RESP 18; TEMP 98.4
--- NOTE | 2019-05-25 10:51 | P.DS ---
Providers Date of admission: 05/24/19 06:09 Expected date of discharge: 05/25/19 Attending physician: Marjorie Camp Primary care physician: Stated None - Discharge Diagnosis(es) (1) Term Current Visit: Yes Status: Acute (2) Status post vaginal delivery Current Visit: Yes Status: Acute Hospital Course: This 28-year-old 5 para 3013 at 39 and one sevenths weeks presented to labor and delivery for elective induction of labor. Patient is a known patient to myself and has been receiving routine care which has been essentially uncomplicated. Patient was admitted to labor and delivery Pitocin induction of labor was begun per hospital protocol. Patient underwent amniotomy clear fluid was obtained. Patient progressed to complete began pushing and normal spontaneous vaginal delivery of a viable male infant at 1343, weight of 7 lbs. 14 oz. with Apgars of 8 and 9 at one and 5 minutes respectively. Patient's course has been uneventful. On this day #1 she is ambulating and voiding without difficulty. She is tolerating regular diet without nausea or vomiting. She denies concerns today and does wish discharge home at 24 hours if stable. Patient does desire circumcision for her son. Patient states her lochia is minimal, she is breast-feeding without difficulty, she states her pain is well-controlled with oral ibuprofen. Patient Condition at Discharge: Good Plan - Discharge Summary New Discharge Prescriptions: No Action Pnv,Calcium 72/Iron/Folic Acid [ Plus Tablet] 1 tab PO HS Sertraline [Zoloft] 100 mg PO DAILY valACYclovir HCL [Valtrex] 500 mg PO DAILY Discharge Medication List Pnv,Calcium 72/Iron/Folic Acid [ Plus Tablet] 1 tab PO HS 05/04/16 [History] Sertraline [Zoloft] 100 mg PO DAILY 02/19/19 [History] valACYclovir HCL [Valtrex] 500 mg PO DAILY 05/24/19 [History] Patient Instructions/Handouts: Vaginal Delivery (DC), Vaginal Delivery (GEN) Discharge Disposition: HOME SELF-CARE
== END 2019-05-25 15:00 | disposition home or self-care (01) | DRG 807 ==
LOC: 4FBP 06:09
PROVIDERS: ADMIT Obstetrics & Gynecology Obstetrics; ATTEND Obstetrics & Gynecology Obstetrics
PROC: 10E0XZZ Delivery of Products of Conception, External Approach (ICD-10-PCS; principal; 2019-05-24)
PROC: 10907ZC Drainage of Amniotic Fluid, Therapeutic from Products of Conception, Via Natural or Artificial Opening (ICD-10-PCS; principal; 2019-05-24)
PROC: 0UQMXZZ Repair Vulva, External Approach (ICD-10-PCS; principal; 2019-05-24)
PROC: 3E033VJ Introduction of Other Hormone into Peripheral Vein, Percutaneous Approach (ICD-10-PCS; principal; 2019-05-24)
DX: O99.354 Diseases of the nervous system complicating childbirth (principal); Z37.0 Single live birth; O99.52 Diseases of the respiratory system complicating childbirth; O99.344 Other mental disorders complicating childbirth; O99.334 Smoking (tobacco) complicating childbirth; F17.210 Nicotine dependence, cigarettes, uncomplicated; F32.9 Major depressive disorder, single episode, unspecified; F41.9 Anxiety disorder, unspecified; G40.909 Epilepsy, unspecified, not intractable, without status epilepticus; J45.909 Unspecified asthma, uncomplicated; O69.81X0 Labor and delivery complicated by cord around neck, without compression, not applicable or unspecified; Z3A.39 39 weeks gestation of pregnancy; Z79.899 Other long term (current) drug therapy; O70.0 First degree perineal laceration during delivery
CPT/HCPCS: 85025; 86850; 86900; 86901

== ENCOUNTER → 2020-06-29 | Outpatient (CLI) | payer BC, OTHER ==
--- NOTE | 2020-06-29 13:22 | XR ---
EXAMINATION TYPE: XR shoulder complete LT DATE OF EXAM: 06/29/2020 CLINICAL HISTORY: pain COMPARISON: NONE TECHNIQUE: Three views of the left shoulder are obtained. FINDINGS: There is no acute fracture/dislocation evident. The acromioclavicular and glenohumeral summer int spaces appear within normal limits. Healed fracture of the middle one third of the left clavicle . The visualized ribs are intact and unremarkable. IMPRESSION: 1. There is no acute fracture or dislocation. ICD 10 NO FRACTURE, INITIAL EVALUATION
== END | disposition home or self-care (01) ==
LOC: RADXRYALE 13:04
PROVIDERS: ATTEND Internal Medicine
DX: M25.512 Pain in left shoulder (principal)

== ENCOUNTER → 2021-03-29 | Outpatient (CLI) | payer BC, OTHER ==
--- NOTE | 2021-03-29 15:42 | XR ---
EXAMINATION TYPE: XR chest 2V DATE OF EXAM: 03/29/2021 COMPARISON: X-ray dated 06/03/2014 HISTORY: Persistent productive cough and hemoptysis for one month. TECHNIQUE: Frontal and lateral views of the chest are obtained. FINDINGS: Unremarkable lungs. No pleural effusion or pneumothorax. No cardiomegaly. Old healed fracture of the left clavicle. IMPRESSION: No significant pulmonary abnormality identified.
== END | disposition home or self-care (01) ==
LOC: RADXRYALE 10:48
PROVIDERS: ATTEND Internal Medicine
DX: R05.9 Cough, unspecified (principal); R04.2 Hemoptysis
CPT/HCPCS: 71046

== ENCOUNTER → 2021-08-09 | Outpatient (CLI) | payer OTHER, BC ==
--- NOTE | 2021-08-10 21:47 | CT ---
EXAMINATION TYPE: CT sinus wo con DATE OF EXAM: 08/09/2021 COMPARISON: CT dated 02/03/2013 HISTORY: migraines CT DLP: 693 mGycm. Automated Exposure Control for Dose Reduction was Utilized. TECHNIQUE: CT scan of the sinuses is performed without contrast, axial images are obtained, coronal r eformatted images are also reviewed. FINDINGS: Minimal deviation of the bony nasal septum convex to the left side. Slightly paradoxical mi ddle turbinates. Small right middle cass bullosa. Grossly unremarkable inferior turbinates. Minimal mucosal thickening of the inferior aspect of the right nasal fossa. Patent infundibulum and ostiomeatal complex bilaterally. Mucosal thickening of the maxillary sinuses. Left maxillary sinus polyp/retention cyst measuring 12 mm. Hypopneumatized frontal sinus. Clear mast oid air cells. Minimal mucosal thickening of the right sphenoid sinus compartment. Patent sphenoethmoidal recesses. Clear visualized mastoid air cells. Enlarged palatine tonsils with slightly prominent nasopharyngeal soft tissue, please correlate clinically. Unremarkable orbits. IMPRESSION: Mucosal thickening of the maxillary sinuses with minimal mucosal thickening of the right sphenoid sin us compartment. Other findings as described above.
== END | disposition home or self-care (01) ==
LOC: RADCTMAIN 18:10
PROVIDERS: ATTEND Otolaryngology
DX: J32.9 Chronic sinusitis, unspecified (principal); J34.89 Other specified disorders of nose and nasal sinuses
CPT/HCPCS: 70486

== ENCOUNTER 2022-03-11 10:54 | Emergency (ER) | payer BC, OTHER ==
[2022-03-11 11:01] VITALS: TEMP 97.9
[2022-03-11 12:12] LABS: Appearance,Urine Clear (Clear); Bilirubin,Urine Negative (Negative); Blood,Urine Negative (Negative); Color,Urine Light Yellow; Glucose,Urine (UA) Negative (Negative); Ketones,Urine Negative (Negative); Leukocyte Esterase,Urine Negative (Negative); Nitrite,Urine Negative (Negative); PH, Urine 6.5 (5.0-8.0); Protein,Urine Negative (Negative); Specific Gravity,Urine 1.005 (1.001-1.035); Urobilinogen,Urine <2.0 mg/dL (<2.0)
--- NOTE | 2022-03-11 13:49 | US ---
EXAMINATION TYPE: US OB >= 14 wk fetus DATE OF EXAM: 03/11/2022 COMPARISON: None for this CLINICAL HISTORY: pain, Pain, no bleeding. Patient states she is having discharge. Hx 1 . A1. Positive beta hCG test. TECHNIQUE: Transabdominal (TA) GESTATIONAL AGE / DATING Physician Established: (19 weeks/2 days) EDC: 08/03/2022 Dates by LMP: Unknown Dates by First Scan: This is first scan Dates by Current Scan: (19 weeks/5 days) EDC: 07/31/2022 SURVEY IUP: Single PLACENTA: *Contour appears lobulated. Complex area seen within: 2.3 x 1.9 x 1.3 cm.* PREVIA: No Previa JAY: 14.51 cm Normal CERVICAL LENGTH (transabdominal: norm > 3.0cm): 3.56 cm BIOMETRY PRESENTATION: Vertex LIE: Longitudinal BPD: 4.46 cm 19 weeks / 3 days HC: 16.54 cm 19 weeks / 2 days AC: 15.33 cm 20 weeks / 4 days FL: 3.35 cm 20 weeks / 3 days ESTIMATED WEIGHT IN GRAMS: 347.83 grams ESTIMATED WEIGHT IN LBS/OZ: 0 lbs. 12 oz. WEIGHT PERCENTAGE BASED ON ESTABLISHED DATES: 94.8% HC/AC: 1.08 Normal FL/AC: 21.83 HEART RATE: 138 bpm RHYTHM: Normal Single live intrauterine gestation is confirmed. Second trimester gestation noted. Normal cephalad pr esentation. No placenta previa. Measured amniotic fluid index within normal limits. No cervical thinn ing. biometry measurements congruent and within normal limits. Centrally at the cord insertion there is a 1.9 cm hypoechoic area in the placenta consistent with placental sanz. IMPRESSION: As above.
--- NOTE | 2022-03-11 14:11 | ED ---
Abdominal Pain HPI - General Chief Complaint: Abdominal Pain Stated Complaint: <20 having contractions Time Seen by Provider: 03/11/22 11:03 Source: patient, RN notes reviewed Mode of arrival: ambulatory Limitations: no limitations - History of Present Illness Initial Comments: 31-year-old female presents emergency Department chief complaint abdominal cr amping, contractions. Patient is [address] Baires she contacted off this and advised to come emergency from. She denies any vaginal bleeding or vaginal leaking. Patient states to labor in the past. Patient states this feels very similar. Patient denies any associated complaints no difficulty eating or drinking no dehydration. - Related Data Home Medications Medication Instructions Recorded Confirmed Albuterol Inhaler [Ventolin Hfa 2 puff INHALATION RT-QID PRN 03/08/21 03/08/21 Inhaler] Lisdexamfetamine Dimesylate 30 mg PO DAILY 03/08/21 03/08/21 [Vyvanse] Truvy Probiotic Chews 1 cap PO DAILY 03/08/21 03/08/21 Truvy Diamond Cleansing Detox 1 cap PO DAILY 03/08/21 03/08/21 Truvy Nicolas Supplement 1 tab PO DAILY 03/08/21 03/08/21 Truvy Truslumber Gummies 1 cap PO HS 03/08/21 03/08/21 Truvy Vy Boost 1 cap PO DAILY 03/08/21 03/08/21 Previous Rx's Medication Instructions Recorded Naproxen [Naprosyn] 375 mg PO Q12HR PRN #20 tablet 03/08/21 Ondansetron [Zofran ODT] 4 mg PO Q8HR #20 tab 03/08/21 Allergies Allergy/AdvReac Type Severity Reaction Status Date / Time sulfamethoxazole Allergy Rash/Hives Verified 03/11/22 11:01 [From Bactrim] trimethoprim [From Bactrim] Allergy Rash/Hives Verified 03/11/22 11:01 codeine phosphate AdvReac Nausea & Verified 03/11/22 11:01 [From Tylenol-Codeine] Vomiting Review of Systems ROS Statement: Those systems with pertinent positive or pertinent negative responses have been documented in the HPI. ROS Other: All systems not noted in ROS Statement are negative. Past Medical History Past Medical History: Asthma, Seizure Disorder Additional Past Medical History / Comment(s): NARCOLEPSY, genital herpes History of Any Multi-Drug Resistant Organisms: None Reported Past Surgical History: Appendectomy, Cholecystectomy Additional Past Surgical History / Comment(s): "nerves burned in my back" Past Anesthesia/Blood Transfusion Reactions: No Reported Reaction Past Psychological History: Anxiety, Depression Smoking Status: Current every day smoker Past Alcohol Use History: None Reported Past Drug Use History: None Reported - Past Family History Mother Family Medical History: No Reported History General Exam Limitations: no limitations General appearance: alert, in no apparent distress Head exam: Present: atraumatic, normocephalic, normal inspection Eye exam: Present: normal appearance, PERRL, EOMI. Absent: scleral icterus, conjunctival injection, periorbital swelling ENT exam: Present: normal exam, normal oropharynx, mucous membranes moist Neck exam: Present: normal inspection, full ROM. Absent: tenderness, meningismus, lymphadenopathy Respiratory exam: Present: normal lung sounds bilaterally. Absent: respiratory distress, wheezes, rales, rhonchi, stridor Cardiovascular Exam: Present: regular rate, normal rhythm, normal heart sounds. Absent: systolic murmur, diastolic murmur, rubs, gallop, clicks GI/Abdominal exam: Present: soft, normal bowel sounds. Absent: distended, tenderness, guarding, rebound, rigid Back exam: Absent: CVA tenderness (R), CVA tenderness (L) Neurological exam: Present: alert Skin exam: Present: warm, dry, intact, normal color. Absent: rash Course Vital Signs 03/11/22 10:59 Temperature 97.9 F Pulse Rate 82 Respiratory 22 Rate Blood Pressure 111/59 O2 Sat by Pulse 99 Oximetry Medical Decision Making - Medical Decision Making Was pt. sent in by a medical professional or institution (, PA, TAX STAFF ACCOUNTANT, urgent care, hospital, or skilled nursing...) When possible be specific @ -No Did you speak to anyone other than the patient for history (EMS, parent, family, police, friend...)? What history was obtained from this source @ -No Did you review nursing and triage notes (agree or disagree)? Why? @ -I reviewed and agree with nursing and triage notes Were old charts reviewed (outside hosp., previous admission, EMS record, old EKG, old radiological studies, urgent care reports/EKG's, skilled nursing records)? Report findings @ -Reviewed prior records of labor and delivery Differential Diagnosis (chest pain, altered mental status, abdominal pain women, abdominal pain men, vaginal bleeding, weakness, fever, dyspnea, syncope, headache, dizziness, GI bleed, back pain, seizure, CVA, palpatations, mental health)? @ - labor, contractions, [place], UTI, abdominal cramping, gas pain, this list is not all inclusive EKG interpreted by me (3pts min.). @ -[None X-rays interpreted by me (1pt min.). @ -None done CT interpreted by me (1pt min.). @ -None done U/S interpreted by me (1pt. min.). @ -Ultrasound shows placental Wise, normal cervical length, appropriate growth What testing was considered but not performed or refused? (CT, X-rays, U/S, labs)? Why? @ -None What meds were considered but not given or refused? Why? @ -None Did you discuss the management of the patient with other professionals (professionals i.e. , PA, TAX STAFF ACCOUNTANT, lab, RT, psych nurse, social welfare research worker, seed buyer, teacher, public information officer, catalytic case operator)? Give summary @ -Discussed with CALLISTHENICS INSTRUCTOR Dr. salgado regarding patient's current symptoms, complaints and further treatment Was smoking cessation discussed for >3mins.? @ -No Was critical care preformed (if so, how long)? @ -No Were there social determinants of health that impacted care today? How? (Homelessness, low income, unemployed, alcoholism, drug addiction, transportation, low edu. Level, literacy, decrease access to med. care, usp, rehab)? @ -No Was there de-escalation of care discussed even if they declined (Discuss DNR or withdrawal of care, Hospice)? DNR status @ -No What co-morbidities impacted this encounter? (DM, HTN, Smoking, COPD, CAD, Cancer, CVA, ARF, Chemo, Hep., AIDS, mental health diagnosis, sleep apnea, morbid obesity)? @ -Prior labor Was patient admitted / discharged? Hospital course, mention meds given and route, prescriptions, significant lab abnormalities, going to OR and other pertinent info. @ -Discharged patient has normal ultrasound, heart tones, urinalysis patient advised to increase fluids, rest, pelvic rest and follow-up with CALLISTHENICS INSTRUCTOR return for any worsening or changing symptoms. Undiagnosed new problem with uncertain prognosis? @ -No Drug Therapy requiring intensive monitoring for toxicity (Heparin, Nitro, Insulin, Cardizem)? @ -No Were any procedures done? @ -No Diagnosis/symptom? @ - and cramping Acute, or Chronic, or Acute on Chronic? @ -Acute Uncomplicated (without systemic symptoms) or Complicated (systemic symptoms)? @ -Uncomplicated Side effects of treatment? @ -No Exacerbation, Progression, or Severe Exacerbation? @ -No Poses a threat to life or bodily function? How? (Chest pain, [place], [place], pneumonia, PE, COPD, DKA, ARF, appy, cholecystitis, CVA, Diverticulitis, Homicidal, Suicidal, threat to staff... and all critical care pts) @ -No - Lab Data Lab Results 03/11/22 Range/Units 11:50 Urine Color Light Yellow Urine Appearance Clear (Clear) Urine pH 6.5 (5.0-8.0) Ur Specific [place] 1.005 (1.001-1.035) Urine Protein Negative (Negative) Urine Glucose (UA) Negative (Negative) Urine Ketones Negative (Negative) Urine Blood Negative (Negative) Urine Nitrite Negative (Negative) Urine Bilirubin Negative (Negative) Urine Urobilinogen <2.0 (<2.0) mg/dL Ur Leukocyte Esterase Negative (Negative) Disposition Clinical Impression: Abdominal cramping affecting Disposition: HOME SELF-CARE Condition: Stable Instructions (If sedation given, give patient instructions): (ED) Additional Instructions: Please return to the Emergency Department if symptoms worsen or any other concerns. Is patient prescribed a controlled substance at d/c from ED?: No Referrals: Marjorie Salgado DO [Primary Care Provider] - 1-2 days Time of Disposition: 14:11
[2022-03-11 14:26] VITALS: BP 115/51; PULSE 71; RESP 18
== END 2022-03-11 14:26 | disposition home or self-care (01) ==
LOC: EC 10:54
DX: O26.892 Other specified pregnancy related conditions, second trimester (principal); O99.512 Diseases of the respiratory system complicating pregnancy, second trimester; O99.342 Other mental disorders complicating pregnancy, second trimester; O99.332 Smoking (tobacco) complicating pregnancy, second trimester; R10.9 Unspecified abdominal pain; J45.909 Unspecified asthma, uncomplicated; F41.9 Anxiety disorder, unspecified; F32.A Depression, unspecified; F17.200 Nicotine dependence, unspecified, uncomplicated; Z88.2 Allergy status to sulfonamides; Z88.5 Allergy status to narcotic agent; Z79.899 Other long term (current) drug therapy; Z3A.19 19 weeks gestation of pregnancy
CPT/HCPCS: 76805; 81003; 99284

== ENCOUNTER 2022-06-11 11:50 | Outpatient (CLI) | payer OTHER ==
[2022-06-11 12:46] LABS: Appearance,Urine Clear (Clear); Bilirubin,Urine Negative (Negative); Blood,Urine Negative (Negative); Color,Urine Light Yellow; Glucose,Urine (UA) Negative (Negative); Ketones,Urine Negative (Negative); Leukocyte Esterase,Urine Negative (Negative); Nitrite,Urine Negative (Negative); Protein,Urine Negative (Negative); Specific Gravity,Urine 1.003 (1.001-1.035); Urobilinogen,Urine <2.0 mg/dL (<2.0)
[2022-06-11] MEDS ORDERED: ACETAMINOPHEN TAB 325 MG TAB PO STA (12:53)
[2022-06-11 13:39] VITALS: BP 122/63; PULSE 86; RESP 16; TEMP 97.3
--- NOTE | 2022-06-11 18:09 | P.MSEPDOC ---
Presenting Problems - Arrival Data Date of Arrival on Unit: 06/11/22 Time of Arrival on Unit: 11:50 Mode of Transport: Ambulatory - Complaint OB-Reason for Admission/Chief Complaint: Pain Comment: Patient presents to triage with irregular contractions since yesterday that are 30 minutes to 1.5 hours apart. States she has terrible pressure and pain in her vagina and her back, notices the pain to be sharp and shooting and the back pain is constant. Medical History - Information : 5 Para: 4 Term: 4 : 0 Abortions: Spontaneous or Elective: 0 Number of Living Children: 4 - Gestational Age Gestational Age by ROBYN (wks/days): 32 Weeks and 3 Days - History Complications: Smoker Review of Systems - Review of Systems Constitutional: No problems Breast: No problems ENT: No problems Cardiovascular: No problems Respiratory: No problems Gastrointestinal: No problems Genitourinary: No problems Musculoskeletal: No problems Neurological: No problems Skin: No problems Vital Signs - Temperature Temperature: 97.3 F Temperature Source: Temporal Artery Scan - Pulse Pulse Oximetery Pulse Rate: 86 Pulse Assessment Method: Pulse Oximetry - Respirations Respiratory Rate: 16 Oxygen Delivery Method: Room Air - Blood Pressure Sitting Blood Pressure: 122/63 Blood Pressure Mean: 82 Blood Pressure Source: Automatic Cuff Medical Screen Scoring - Cervical Exam Dilation (cm): 1 Membranes: Intact - Uterine Contractions Resting: Soft to palpation - Assessment - Baby A Baseline FHR: 125 Heart Rate - NICHD Category: Category I (Normal) NST: Reactive Physician Notification - Physician Notified Physician Notified Date: 06/11/22 Physician Notified Time: 12:52 Physician: Marjorie Camp New Order Received: Yes - Notification Comment Comment: Orders given to collect FFN, check cervix if no change from last week no need to send FFN, give patient water to drink and tylenol for the headache, monitor for a little while longer and then discharge home with instructions, patient to follow up in office with regular appt tomorrow. Maternal Triage Index - Non-Urgent/Priority 4 Non-Urgent Priority 4: Yes Criteria Met for Priority 4: 32 3/7 Presents for constant back pain and irregular contractions approximately 30 minutes to 1.5 hours apart. Patient rating her pain 5/10, states she has had a headache since yesterday and she has not taken anything for the pain, states she has vaginal pressure and sharp shooting vaginal pain and numbness in her legs. Disposition - Disposition OB Disposition: Discharge to home, Written follow up instructions reviewed Discharge Date: 06/11/22 Discharge Time: 13:30 I agree with the RN Medical Screening Exam: Yes Case reviewed; plan agreed upon as documented in EMR&OBIX.: Yes Diagnosis: FALSE LABOR BEFORE 37 COMPLETED WEEKS OF GEST, THIRD TRI
== END 2022-06-11 13:30 | disposition home or self-care (01) ==
LOC: FBPOP 11:50
PROVIDERS: ATTEND Obstetrics & Gynecology Obstetrics
DX: O47.03 False labor before 37 completed weeks of gestation, third trimester (principal); Z3A.32 32 weeks gestation of pregnancy; O99.333 Smoking (tobacco) complicating pregnancy, third trimester; F17.200 Nicotine dependence, unspecified, uncomplicated; Z88.2 Allergy status to sulfonamides; Z88.5 Allergy status to narcotic agent
CPT/HCPCS: 59025; 81003; G0463; 99213

== ENCOUNTER 2022-07-30 06:00 | Inpatient (IN) | payer OTHER ==
[2022-07-30] MEDS ORDERED: METHYLERGONOVINE 0.2 MG/ML 1 ML AMP IM PRN (06:55)
[2022-07-30] MEDS ORDERED: TERBUTALINE 1 MG/ML VIAL SQ PRN (06:55)
[2022-07-30] MEDS ORDERED: TRANEXAMIC 1,000 MG/100ML-NACL 1,000 MG in EMPTY BAG 1 BAG IV PRN (06:55)
[2022-07-30] MEDS ORDERED: LIDOCAINE 0.5% (PF) 5 MG/ML (50 ML SDV) SQ PRN (06:55)
[2022-07-30] MEDS ORDERED: miSOPROStoL 200 MCG TAB PO PRN (06:55)
[2022-07-30] MEDS ORDERED: OXYTOCIN 10 UNIT/ML 1 ML VIAL IM PRN (06:55)
[2022-07-30] MEDS ORDERED: CARBOPROST TROMETHAMINE 250 MCG/ML 1 ML AMP IM PRN (06:55)
[2022-07-30] MEDS ORDERED: OXYTOCIN 30 UNITS/500 ML NS 30 UNIT in SALINE 1 500ML.BAG IV SCH ×2 (07:00→15:00)
[2022-07-30 07:16] LABS: Basophils % (A) 0 %; Eosinophils # (A) 0.3 k/uL (0-0.7); Eosinophils % (A) 3 %; HCT 33.7 % (34.0-46.0); HGB 11.7 gm/dL (11.4-16.0); Lymphocytes # (A) 2.4 k/uL (1.0-4.8); Lymphocytes % (A) 21 %; MCHC 34.8 g/dL (31.0-37.0); MCV 94.9 fL (80.0-100.0); Monocytes # (A) 0.7 k/uL (0-1.0); Monocytes % (A) 6 %; Neutrophils # (A) 7.9 k/uL (1.3-7.7); Neutrophils % (A) 68 %; Platelet Count 301 k/uL (150-450); RBC 3.55 m/uL (3.80-5.40); RDW 13.2 % (11.5-15.5); WBC 11.6 k/uL (3.8-10.6)
[2022-07-30] MEDS: LACTATED RINGERS 1,000 ML IV SCH ×2 (07:39→20:09)
--- NOTE | 2022-07-30 09:07 | P.HPOB ---
History of Present Illness H&P Date: 07/30/22 Chief Complaint: IUP at 39-3/7 weeks This is a 31-year-old 6 para 4014 at 39-3/7 weeks, estimated due date of 08/03. Patient presents for elective induction of labor. Patient has been receiving routine care which has been essentially uncomplicated. Patient doesn't a history of HSV and has been taking acyclovir. Patient notes good movement has noted occasional contractions throughout the third trimester. Patient notes good movement today. Patient has a known blood type of O+, rubella status immune, B surface antigen negative, HIV negative, RPR is nonreactive, group beta strep cultures negative. Review of Systems Constitutional: Denies chills, Denies fatigue, Denies fever Ears, nose, mouth and throat: Denies headache Cardiovascular: Reports leg edema Respiratory: Denies dyspnea Gastrointestinal: Denies constipation, Denies diarrhea, Denies nausea, Denies vomiting Genitourinary: Reports Past Medical History Past Medical History: Asthma, Neurologic Disorder, Seizure Disorder Additional Past Medical History / Comment(s): NARCOLEPSY, genital herpes History of Any Multi-Drug Resistant Organisms: None Reported Past Surgical History: Appendectomy, Cholecystectomy Additional Past Surgical History / Comment(s): "nerves burned in my back" Past Anesthesia/Blood Transfusion Reactions: No Reported Reaction Past Psychological History: Anxiety, Depression Smoking Status: Current every day smoker Past Alcohol Use History: None Reported Past Drug Use History: None Reported - Past Family History Mother Family Medical History: No Reported History Father Family Medical History: Hypertension Medications and Allergies Home Medications Medication Instructions Recorded Confirmed Type Albuterol Inhaler [Ventolin Hfa 2 puff INHALATION RT-QID PRN 03/08/21 07/30/22 History Inhaler] Aspirin [[place] Aspirin EC] 81 mg PO DAILY 06/11/22 07/30/22 History Vit No.179/Iron/Folic 1 each PO DAILY 06/11/22 07/30/22 History [ Tablet] Venlafaxine HCl [Effexor] 75 mg PO DAILY 06/11/22 07/30/22 History valACYclovir HCL [Valacyclovir] 500 mg PO DAILY 07/30/22 07/30/22 History Allergies Allergy/AdvReac Type Severity Reaction Status Date / Time sulfamethoxazole Allergy Rash/Hives Verified 06/11/22 11:58 [From Bactrim] trimethoprim [From Bactrim] Allergy Rash/Hives Verified 06/11/22 11:58 codeine phosphate AdvReac Nausea & Verified 06/11/22 11:58 [From Tylenol-Codeine] Vomiting Exam Osteopathic Statement: *. No significant issues noted on an osteopathic structural exam other than those noted in the History and Physical/Consult. Vital Signs Temp Pulse Resp BP 07/30/22 07:19 97.0 F L 86 18 118/56 Intake and Output 07/29/22 07/30/22 07/30/22 22:59 06:59 14:59 Other: Weight 102.512 kg 102.512 kg Targeted physical exam is performed in this date and inside sales account manager a well-nourished well-developed female in no acute distress, breathing is noted to be nonlabored, heart has a regular rate and rhythm, abdomen is gravid and appropriate for gestational age, on cervical exam she is 2/50/-3 station amniotomy is performed and copious clear fluid is obtained. Heart tones are noted to be category 1 and she is brandie every 5 minutes. Results Result Diagrams: 07/30/22 06:45 Abnormal Lab Results - Last 24 Hours (Table) 07/30/22 Range/Units 06:45 WBC 11.6 H (3.8-10.6) k/uL RBC 3.55 L (3.80-5.40) m/uL Hct 33.7 L (34.0-46.0) % Neutrophils # 7.9 H (1.3-7.7) k/uL Assessment and Plan (1) HSV (herpes simplex virus) anogenital infection Current Visit: Yes Status: Acute Code(s): A60.9 - ANOGENITAL HERPESVIRAL INFECTION, UNSPECIFIED SNOMED Code(s): 871476796 (2) Term Current Visit: No Status: Acute Code(s): Z34.90 - ENCNTR FOR SUPRVSN OF NORMAL , UNSP, UNSP TRIMESTER SNOMED Code(s): 37288491 Plan: 31-year-old 014 at 39-3/7 weeks that presents to labor and delivery for elective induction of labor. Patient is admitted and Pitocin induction of labor is begun per hospital protocol. Patient is counseled on options for analgesia including epidural/nitro/Stadol. Patient declines. We'll anticipate spontaneous vaginal delivery later today.
[2022-07-30] MEDS ORDERED: HYDROCORTISONE 2.5% RECTAL CREAM 30 GM TUBE RECTAL PRN (14:46)
[2022-07-30] MEDS ORDERED: diphenhydrAMINE 50 MG/ML 1 ML VIAL IVP PRN ×2 (14:46)
[2022-07-30] MEDS ORDERED: BENZOCAINE/MENTHOL SPRAY 1 GM/SPRAY AEROSOL TOPICAL PRN (14:46)
[2022-07-30] MEDS ORDERED: ZOLPIDEM 5 MG TAB PO PRN (14:46)
[2022-07-30] MEDS ORDERED: LANOLIN CREAM 5 GM TUBE TOPICAL PRN (14:46)
[2022-07-30] MEDS ORDERED: SIMETHICONE 80 MG CHEWABLE PO PRN (14:46)
[2022-07-30] MEDS ORDERED: ACETAMINOPHEN TAB 325 MG TAB PO PRN (14:46)
[2022-07-30] MEDS ORDERED: diphenhydrAMINE 50 MG CAP PO PRN (14:46)
[2022-07-30] MEDS ORDERED: diphenhydrAMINE 25 MG CAP PO PRN (14:46)
--- NOTE | 2022-07-30 14:49 | P.PROBDLV ---
Vaginal Delivery Note - . Vaginal Delivery Note: 31-year-old 6 para 4014 at 39-2/7 weeks that presented for induction of labor this morning. Pitocin induction of labor was begun per hospital protocol. Patient underwent amniotomy clear fluid was obtained. Patient made good progress in labor eventually noted to be completely dilated. Patient was placed in the modified lithotomy position and with excellent maternal effort delivered the head followed by the anterior posterior shoulder the body. A loose body cord was delivered through. The umbilical cords doubly clamped and cut and the was handed to the maternal abdomen. The placenta was delivered spontaneously intact with three-vessel cord being noted after cord blood was taken. On inspection the patient's vaginal vault the lacerations were appreciated. Uterus noted be firm and below the umbilicus. Estimated blood loss 100 mL. Patient tolerated delivery well and are resting comfortably. All counts were correct times to obtain of the delivery.
[2022-07-30] MEDS ORDERED: miSOPROStoL 200 MCG TAB RECTAL STA (15:05)
[2022-07-30] MEDS: IBUPROFEN 600 MG TAB PO SCH ×2 (15:34→20:14)
[2022-07-30] MEDS: SENNOSIDES-DOCUSATE SODIUM 1 EACH TAB PO SCH (20:14)
[2022-07-30] MEDS ORDERED: VENLAFAXINE HCL ER 75 MG CAP PO SCH (21:00)
[2022-07-30 21:18] VITALS: RESP 16
[2022-07-31] MEDS: IBUPROFEN 600 MG TAB PO SCH ×2 (08:37→09:10)
[2022-07-31] MEDS: LACTATED RINGERS 1,000 ML IV SCH (08:37)
[2022-07-31] MEDS: SENNOSIDES-DOCUSATE SODIUM 1 EACH TAB PO SCH (09:11)
[2022-07-31 09:19] VITALS: BP 120/77; PULSE 75; TEMP 97.9
[2022-07-31 11:34] LABS: HCT 34.6 % (34.0-46.0); HGB 11.4 gm/dL (11.4-16.0); MCH 32.3 pg (25.0-35.0); MCV 98.1 fL (80.0-100.0); Mean Platelet Volume 7.1; Platelet Count 313 k/uL (150-450); RBC 3.53 m/uL (3.80-5.40); WBC 12.8 k/uL (3.8-10.6)
--- NOTE | 2022-07-31 12:17 | P.DS ---
Providers Date of admission: 07/30/22 06:40 Expected date of discharge: 07/31/22 Attending physician: Marjorie Camp Primary care physician: Stated None - Discharge Diagnosis(es) (1) HSV (herpes simplex virus) anogenital infection Current Visit: Yes Status: Acute (2) Term Current Visit: No Status: Acute Hospital Course: This is a 31-year-old 6 para 5015 presented to labor and delivery on 07/30 at 39-2/7 weeks. Patient elected induction of labor. Patient was receivi ng routine care which has been essentially uncomplicated. Patient denied concerns the morning of admission. Patient was admitted and Pitocin induction of labor was begun per hospital protocol. Patient underwent amniotomy and copious clear fluid was obtained. Patient declines analgesia throughout the labor process. Patient progressed to complete began pushing and had a normal spontaneous vaginal delivery of a viable female infant at 1428, Weight of 7 lbs. 3 oz., Apgars of 7 and 9 at one and 5 minutes respectively. No vaginal lacerations were appreciated after delivery. Patient did have a few good gushes of bleeding after delivery and received cytotec 1000mcg rectally. Hemoglobin today is stable from 11.4-11.2. Patient's course has been uneventful. On this day #1 she is ambulating and voiding without difficulty. She is tolerating a regular diet without nausea or vomiting. She states her pain is well-controlled. She would like discharge 24 hours if possible. Patient Condition at Discharge: Good Plan - Discharge Summary New Discharge Prescriptions: No Action Albuterol Inhaler [Ventolin Hfa Inhaler] 2 puff INHALATION RT-QID PRN PRN Reason: Shortness Of Breath Vit No.179/Iron/Folic [ Tablet] 1 each PO DAILY Venlafaxine HCl [Effexor] 75 mg PO DAILY Aspirin [[place] Aspirin EC] 81 mg PO DAILY valACYclovir HCL [Valacyclovir] 500 mg PO DAILY Discharge Medication List Albuterol Inhaler [Ventolin Hfa Inhaler] 2 puff INHALATION RT-QID PRN 03/08/21 [History] Aspirin [[place] Aspirin EC] 81 mg PO DAILY 06/11/22 [History] Vit No.179/Iron/Folic [ Tablet] 1 each PO DAILY 06/11/22 [History] Venlafaxine HCl [Effexor] 75 mg PO DAILY 06/11/22 [History] valACYclovir HCL [Valacyclovir] 500 mg PO DAILY 07/30/22 [History] Follow up Appointment(s)/Referral(s): Marjorie Camp DO [Doctor of Osteopathic Medicine] - 4 Weeks Patient Instructions/Handouts: Vaginal Delivery (GEN), Vaginal Delivery (DC) Activity/Diet/Wound Care/Special Instructions: No tub baths or intercourse until 6 weeks . [id number] ibuprofen as needed for pain. Routine visit is scheduled at 4 weeks. Should patient have a concerns prior to this appointment she is urged to call the office. Discharge Disposition: HOME SELF-CARE
== END 2022-07-31 15:00 | disposition home or self-care (01) | DRG 560 ==
LOC: 4FBP 06:40
PROVIDERS: ADMIT Obstetrics & Gynecology Obstetrics; ATTEND Obstetrics & Gynecology Obstetrics
PROC: 10E0XZZ Delivery of Products of Conception, External Approach (ICD-10-PCS; principal; 2022-07-30)
PROC: 3E033VJ Introduction of Other Hormone into Peripheral Vein, Percutaneous Approach (ICD-10-PCS; 2022-07-30)
DX: O98.32 Other infections with a predominantly sexual mode of transmission complicating childbirth (principal); Z37.0 Single live birth; O99.354 Diseases of the nervous system complicating childbirth; G40.909 Epilepsy, unspecified, not intractable, without status epilepticus; O71.4 Obstetric high vaginal laceration alone; G47.419 Narcolepsy without cataplexy; A60.9 Anogenital herpesviral infection, unspecified; O99.334 Smoking (tobacco) complicating childbirth; F17.210 Nicotine dependence, cigarettes, uncomplicated; Z3A.39 39 weeks gestation of pregnancy; Z28.310 Unvaccinated for COVID-19; Z79.899 Other long term (current) drug therapy; Z79.82 Long term (current) use of aspirin; Z88.1 Allergy status to other antibiotic agents; Z88.5 Allergy status to narcotic agent
CPT/HCPCS: 85025; 85027; 86850; 86900; 86901